=== PATIENT | female | born 1950 | race Caucasian/White ===

== ENCOUNTER 2016-12-16 09:10 | Inpatient (IN) | payer MEDICARE ==
[2016-12-16] VITALS (13 sets, daily range): BP systolic 105–179; BP diastolic 54–91
[~2016-12-16] VITALS: Ht 162.6 cm; Wt 125.8 kg
[~2016-12-16 09:10] MED LIST: AMIO200T2 PO; ASCO250T PO; ASPI-482 PO; ASPI325T4 PO; ATOR20TA58 PO; ATOR40TA59 PO; BUME0.5T PO; BUME1TAB PO; CIPR250T30 PO; CLOP75TA27 PO; CYAN10005 PO; DILT180C29 PO; Diltiazem Hcl PO; FENTANYL PF 100 MCG/2 ML VIAL. IV PRN; FERR325T31 PO; IRBE300T3 PO; ISOS120T2 PO; ISOS60TA2 PO; IV RINGERS,LACTATED 1000ML 1,000 ML IV SCH; KRIL1CAP10 PO; LABE100T3 PO; LABE200T2 PO; LIDOCAINE 1% 1 ML SYRINGE. ID PRN; LOSA100T6 PO; METF500T4 PO; OMEG1CAP38 PO; ONDANSETRON PF 4 MG/2 ML VIAL. IV PRN; PANT40TA3 PO; PROCHLORPERAZINE 10 MG/2 ML VIAL. IV PRN; RANO10002 PO; TRAM50TA PO; WARF5TAB7 PO
[2016-12-16] MEDS ORDERED: LIDOCAINE 2%/EPI 1:100,000 20 ML VIAL. ONE (09:17)
[2016-12-16] MEDS ORDERED: methylPREDNISolone SOD SUCC PF 125 MG/2 ML VIAL. IV ONE (09:45)
[2016-12-16] MEDS ORDERED: FAMOTIDINE 20 MG/2 ML VIAL IVP ONE (09:45)
[2016-12-16] MEDS ORDERED: DIPHENHYDRAMINE 50 MG/ML VIAL IVP ONE (09:45)
[2016-12-16] MEDS ORDERED: LABE100T3 PO (09:50)
[2016-12-16] MEDS ORDERED: BACITRACIN 50,000 UNIT in IV NORMAL SALINE 250ML 250 ML IRR ONE (10:00)
[2016-12-16] MEDS ORDERED: CEFAZOLIN SODIUM 3 GM in IV NORMAL SALINE 100ML 100 ML IV ONE (10:00)
[2016-12-16 10:07] LABS: HEMATOCRIT 37.5 % (36.0-47.0); HEMOGLOBIN 12.1 g/dL (12.0-15.5); RED BLOOD COUNT 4.03 x10^6/uL (3.50-5.40); RED CELL DISTRIBUTION WIDTH 15.5 % (11.5-14.5); WHITE BLOOD COUNT 7.1 x10^3/uL (4.0-11.0)
--- NOTE | 2016-12-16 10:15 | EKG ---
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
[2016-12-16] MEDS ORDERED: LIDOCAINE 2% 100 MG/5 ML DISP.SYRIN. ONE (10:19)
[2016-12-16] MEDS ORDERED: PROPOFOL 50 ML IV ONE (10:19)
[2016-12-16] MEDS ORDERED: MIDAZOLAM HCL 2 MG/2 ML VIAL. ONE (10:19)
[2016-12-16] MEDS ORDERED: OXYTOCIN 10 UNIT/ML VIAL. ONE (10:19)
[2016-12-16] MEDS ORDERED: EPHEDRINE PF IN SALINE 50 MG/5 ML DISP.SYRIN. IV ONE (10:20)
[2016-12-16] MEDS ORDERED: KETAMINE HCL 500 MG/10 ML VIAL. ONE (10:20)
[2016-12-16 10:21] LABS: PROTHROMBIN TIME PATIENT 12.9 SEC (11.7-14.0)
[2016-12-16 10:34] LABS: CALCIUM 9.2 mg/dL (8.5-10.1); CREATININE 1.1 mg/dL (0.6-1.0); GFR 49.4; POTASSIUM 4.2 mmol/L (3.5-5.1)
--- NOTE | 2016-12-16 10:47 | PDOC ---
MODERATE SEDATION ASSESSMENT RISKS/ALTERNATIVES Risks/Alternatives Risks and alternatives of this type of sedation and procedure discussed with: RISK/ALTERNATIVES: Patient H & P ON CHART H & P H & P on chart and reviewed for co-morbid conditions and appropriate labs. H&P ON CHART: Yes STATUS PREG STATUS ASSESSED: N/A MEDS/ALLERGIES REVIEWED Meds/Allergies Reviewed Medications and Allergies including time and route of recently administered narcotics and sedatives. MEDS/ALLERGIES REVIEWED: Yes ASA RATING ASA RATING: II AIRWAY ASSESSMENT Airway Assessment Airway patency, oral function limitations, presence of caps, crowns, dentures, partials, and ability to extend neck assessed. AIRWAY ASSESSMENT: Yes MALLAMPATI SCORE MALLAMPATI SCORE: II PRE-SEDATION ASSESSMENT PRE-SEDATION ASSESSMENT: Yes TRES STEVENS MD Dec 16, 2016 10:47
[2016-12-16] MEDS ORDERED: CEFAZOLIN 2GM PREMIX 0 ML IV ONE (11:35)
[2016-12-16] MEDS ORDERED: IOHEXOL 300 MG/ML 100ML VIAL. ONE (12:03)
[2016-12-16] MEDS ORDERED: LIDOCAINE 2%/EPI 1:100,000 20 ML VIAL. IJ ONE (12:15)
--- NOTE | 2016-12-16 14:36 | CARD ---
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 The patient was brought to the cardiac catheterization lab and the left chest and shoulder were prepp ed and draped in the usual fashion. 30 mL of 2% lidocaine was infiltrated into the skin and subcutaneous tissues for local anesthesia. An incision was made over the previous scar and using blunt dissection and cautery the pocket was opene d, the capsule exposed and opened and the generator removed from the pocket. The right ventricle lead was capped. The right atrial lead was interrogated and found to be functioning well. Venous access w as obtained in the left subclavian vein and a 9 [place] coronary sinus sheath was inserted. With the h elp of contrast injections in the right atrium using a SHABNAM 2 catheter the coronary sinus ostium was engaged and the sheath advanced into the coronary sinus. Venogram was obtained to identify the approp riate posterolateral vein for left ventricular lead placement. Subsequently, a Biotronik bipolar left ventricular lead model Corox serial number [id number] was advanc ed under fluoroscopic guidance and the tip was positioned in the posterolateral vein. Following this, venous access was obtained again and 10 [place] sheath was inserted. A Biotronik bipolar active fixat ion right ventricle lead model Protego serial number [id number] was advanced under fluoroscopic guidanc e and the tip was positioned in the right ventricular apex. The leads were secured into place and att ached to a Biotronik biventricular ICD/FISH FARM LABORER-D generator model Itrevia 7 HF-T DF4 serial number [id number]. This was placed in the pocket was subsequently closed in 3 layers. Hemostasis was secured. Ventricular fibrillation was then induced to check the defibrillation threshold. Patient successfully converted to sinus rhythm with a 14 J shock therapy. The left ventricular lead showed sensing amplit ude of 24.4 mV, impedance of 304 ohms and a threshold of 1.6 V. The right ventricular lead showed a s ensing amplitude of 18.4 mV, impedance of 550 ohms and a threshold of 0.6 V. Patient tolerated the pr ocedure well. There were no immediate complications. 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
[2016-12-16] MEDS ORDERED: ISOS60TA2 PO (17:21)
[2016-12-17 03:00] VITALS: BP 116/47
[2016-12-17 07:13] VITALS: BP 108/69
[2016-12-17 11:13] VITALS: BP 125/60
[2016-12-17] MEDS ORDERED: DILTIAZEM HCL 180 MG CAP.ER.24H PO SCH (12:00)
[2016-12-17] MEDS ORDERED: BUMETANIDE 1 MG TABLET PO SCH (12:00)
[2016-12-17] MEDS ORDERED: ISOSORBIDE MONONITRATE ER 60 MG TAB.ER.24H PO SCH (12:00)
[2016-12-17] MEDS ORDERED: AMIODARONE HCL 200 MG TABLET PO SCH (12:00)
[2016-12-17] MEDS ORDERED: CLOPIDOGREL BISULFATE 75 MG TABLET PO SCH (12:00)
--- NOTE | 2016-12-17 15:18 | PDOC3 ---
Discharge Summary Visit Information Date of Admission: Dec 16, 2016 Date of Discharge: Dec 17, 2016 Admitting Diagnosis: Ischemic cardiomyopathy Final Diagnosis Ischemic cardiomyopathy Chronic systolic heart failure Coronary artery disease Sick sinus syndrome Paroxysmal atrial fibrillation Hypertension Hyperlipidemia Diabetes mellitus Brief Hospital Course Allergies Allergies Coded Allergies Type Severity Reaction Last Updated Verified codeine Allergy Intermediate 12/16/16 Yes ELVIRA Inhibitors Allergy Unknown 12/16/16 Yes Iodine and Iodide Containing Produc Allergy Unknown Swelling 12/16/16 Yes Vital Signs Vital Signs Date Time Temp Pulse Resp B/P Pulse Ox O2 Delivery O2 Flow Rate FiO2 12/17/16 13:07 73 125/60 12/17/16 11:13 98.0 16 96 Nasal Cannula 98.0 12/16/16 20:00 2.0 Lab Results Laboratory Tests Test 12/16/16 09:55 White Blood Count 7.1x10^3/uL (4.0-11.0) Red Blood Count 4.03x10^6/uL (3.50-5.40) Hemoglobin 12.1g/dL (12.0-15.5) Hematocrit 37.5% (36.0-47.0) Mean Corpuscular Volume 93fL (79-100) Mean Corpuscular Hemoglobin 30pg (25-35) Mean Corpuscular Hemoglobin Concent 32g/dL (31-37) Red Cell Distribution Width 15.5% (11.5-14.5) Platelet Count 207x10^3/uL (140-400) Prothrombin Time 12.9SEC (11.7-14.0) Prothromb Time International Ratio 1.0 (0.8-1.1) Activated Partial Thromboplast Time 27SEC (24-38) Sodium Level 143mmol/L (136-145) Potassium Level 4.2mmol/L (3.5-5.1) Chloride Level 104mmol/L (98-107) Carbon Dioxide Level 32mmol/L (21-32) Anion Gap 7 (6-14) Blood Urea Nitrogen 22mg/dL (7-20) Creatinine 1.1mg/dL (0.6-1.0) Estimated GFR (Cockcroft-Gault) 49.4 Glucose Level 104mg/dL (70-99) Calcium Level 9.2mg/dL (8.5-10.1) Brief Hospital Course Ms. 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 She underwent the procedure successfully and remained hemodynamically stable during her hospital stay. Her device was interrogated and found to be functioning well prior to her discharge. Chest x- ray did not show any pneumothorax. She will follow-up with our office in one month. Discharge Information Condition at Discharge: Stable Follow Up: Months (one) Disposition/Orders: D/C to Home Scheduled Amiodarone Hcl (Amiodarone Hcl) 1 TAB PO DAILY Atorvastatin Calcium (Atorvastatin Calcium) 20 MG PO HS (Reported) Bumetanide (Bumetanide) 0.5 MG PO DAILY (Reported) Clopidogrel Bisulfate (Plavix) 75 MG PO DAILY (Reported) Diltiazem Hcl (Diltiazem 24HR Cd) 180 MG PO DAILY (Reported) Irbesartan (Irbesartan) 300 MG PO HS (Reported) Isosorbide Mononitrate (Isosorbide Mononitrate Er) 1 TAB PO DAILY (Reported) Labetalol Hcl (Labetalol Hcl) 200 MG PO BID (Reported) TRES STEVENS MD Dec 17, 2016 15:18
[2016-12-17 15:30] VITALS: BP 138/54
--- NOTE | 2016-12-17 15:48 | RAD ---
Chest, 2 views, 12/17/2016: History: Check ICD placement Comparison is made to a study from 11/09/2016. A left-sided transvenous pacing device is in place with additional transvenous leads having been inserted. 2 leads extend into the region of the right ventricle. The tip of a third lead is projected over the anterior superior aspect of the right atrium. The a fourth lead appears to extend into a cardiac vein posteriorly. The heart is generally enlarged. The pulmonary vascularity is somewhat poorly defined on the PA view. This may be due to technical basis as no infiltrates or abnormal vascularity is evident on the lateral view. There is no evidence of pleural fluid or pneumothorax. IMPRESSION: 1. Transvenous pacing leads are in place as described above. 2. Cardiomegaly.
== END 2016-12-17 17:25 | disposition home or self-care (01) | DRG 227 ==
LOC: CCL 09:10 → 2 NORTH 10:53
PROVIDERS: ADMIT Internal Medicine Cardiovascular Disease; ATTEND Internal Medicine Cardiovascular Disease
PROC: 02HK3KZ Insertion of Defibrillator Lead into Right Ventricle, Percutaneous Approach (ICD-10-PCS; 2016-12-16)
PROC: 02HL3KZ Insertion of Defibrillator Lead into Left Ventricle, Percutaneous Approach (ICD-10-PCS; 2016-12-16)
PROC: 0JPT0PZ Removal of Cardiac Rhythm Related Device from Trunk Subcutaneous Tissue and Fascia, Open Approach (ICD-10-PCS; 2016-12-16)
PROC: 0JH609Z Insertion of Cardiac Resynchronization Defibrillator Pulse Generator into Chest Subcutaneous Tissue and Fascia, Open Approach (ICD-10-PCS; principal; 2016-12-16 11:00)
DX: I25.5 Ischemic cardiomyopathy (principal); I50.22 Chronic systolic (congestive) heart failure; E11.9 Type 2 diabetes mellitus without complications; E78.5 Hyperlipidemia, unspecified; I25.10 Atherosclerotic heart disease of native coronary artery without angina pectoris; I48.0 Paroxysmal atrial fibrillation; I11.0 Hypertensive heart disease with heart failure; I49.5 Sick sinus syndrome; Z88.5 Allergy status to narcotic agent; Z91.041 Radiographic dye allergy status; Z95.0 Presence of cardiac pacemaker; Z88.6 Allergy status to analgesic agent
CPT/HCPCS: 33225; 33249; 36415; 71020; 80048; 85027; 85610; 85730; 93005; 93566; 93641; C1769; C1882; C1892; C1895; J0690; J1200; J2250; J2590; J2704; J2930; J3490; J7050; S0028; J7030

== ENCOUNTER → 2017-05-11 | Outpatient (CLI) | payer MEDICARE ==
[~2017-05-11] MED LIST changes: -ASPI325T4 PO; +ASPI325T8 PO; -CLOP75TA27 PO; +CLOP75TA57 PO; -FENTANYL PF 100 MCG/2 ML VIAL. IV PRN; +FERR-36 PO; -FERR325T31 PO; -IV RINGERS,LACTATED 1000ML 1,000 ML IV SCH; -KRIL1CAP10 PO; +KRIL1CAP11 PO; -LIDOCAINE 1% 1 ML SYRINGE. ID PRN; -ONDANSETRON PF 4 MG/2 ML VIAL. IV PRN; -PROCHLORPERAZINE 10 MG/2 ML VIAL. IV PRN
[2017-05-11 10:23] LABS: ALBUMIN 3.6 g/dL (3.4-5.0); CALCIUM 9.3 mg/dL (8.5-10.1); DIRECT BILIRUBIN 0.2 mg/dL (0.0-0.2); POTASSIUM 4.4 mmol/L (3.5-5.1); TOTAL BILIRUBIN 0.6 mg/dL (0.2-1.0); TOTAL PROTEIN 7.1 g/dL (6.4-8.2)
[2017-05-11 10:35] LABS: FREE T4 1.25 ng/dL (0.76-1.46)
== END | disposition home or self-care (01) ==
LOC: PF 08:34
PROVIDERS: ATTEND Nurse Practitioner
DX: I50.22 Chronic systolic (congestive) heart failure (principal)
CPT/HCPCS: 36415; 80048; 80076; 84439; 84443; 94060; 94729

== ENCOUNTER → 2017-06-18 | Outpatient (CLI) | payer MEDICARE ==
--- NOTE | 2017-06-29 13:13 | RAD ---
APPROVED REPORT Bilateral Lower Extremity Venous Study for DVT Patient Location: OUT-PATIENT Indications Lower Extremity Pain: Bilateral Lower Extremity Edema: Bilateral Shortness of breath Risk Factors Obesity Medications Coumadin Plavix Aspirin DC COUMADIN, STILL ON PLAVIX AND ASPRIN Findings On the right side grayscale images of the common femoral vein, proximal and distal superficial femora l vein and popliteal veins do not reveal any evidence of thrombus and these veins appear to be fully compressible. The mid right superficial femoral vein is not well visualized due to body habitus. Spec tral waveforms and color Doppler are grossly normal. Below-knee veins are not well visualized but the re is demonstration of spontaneous flow. No clear evidence of deep venous thrombosis on the right josue e. On the left side grayscale images of the common femoral vein, proximal and distal superficial femoral vein and popliteal veins do not demonstrate any evidence of thrombus appear to be fully compressible . The mid femoral vein is not well visualized. The below-knee veins do not demonstrate any evidence o f obstruction to flow with spontaneous color Doppler and spectral images noted but grayscale images a re limited due to body habitus. Again no clear evidence of deep venous thrombosis is noted. Critical Notification Critical Value: No <Conclusion> Negative for DVT in the bilateral lower extremities.
--- NOTE | 2017-06-29 13:18 | RAD ---
APPROVED REPORT Patient Location : OUT-PATIENT Indications Lower Extremity Pain : Bilateral Lower Extremity Edema : Bilateral Risk Factors Obesity Past History Compression Stockings : Yes Medications Plavix Aspirin Deep System Deep Venous Thrombosis present : No Deep Venous Reflux present : Yes Lesser Saphenous Veins (LSV) Significant venous reflux is noted in the Left LSV. Accessory Veins Right Anterior Accessory Vein : Present : Yes Leftt Anterior Accessory Vein : Present : Yes Perforators Thigh Perforators Calf Perforators Left: cm up from medial heel 37cm back from the anterior border of tibia 14 diameter 1.6mm. Findings The right great saphenous vein measures approximate 4.5 mm. Although there is reflux noted at the lev el of the common femoral vein there is no clear evidence of reflux noted in the greater saphenous vei n. The right lesser saphenous vein is not well visualized. The left great saphenous vein measures approximately 10 mm. Although there is no clear evidence of re flux the vein is extremely dilated and there are multiple perforators noted on anatomical evaluation. The left lesser saphenous vein does not demonstrate any clear evidence of reflux. Perforators are no adan at the following segments: 37 cm up, 14 cm back-23 cm up and 12 cm back-12 cm up and 11 cm back-a nd 8 cm up and 8 cm back Due to body habitus the imaging was technically difficult. Based on evidence of dilated veins and sig nificant perforators it appears that there is reflux. Reflux is demonstrated at the level of the comm on femoral veins near the saphenofemoral junctions bilaterally with a reflux time of 1.5 seconds. Due to technical limitations clear evidence of reflux was not able to be demonstrated in the greater sap henous veins. Critical Notification Critical Value: No <Conclusion> 1. Reflux noted in the bilateral saphenofemoral junctions without clear evidence of reflux demonstrab le in the greater saphenous veins likely due to technical limitations. 2. Significant dilation of the bilateral greater saphenous veins with multiple perforators noted in t he left side suggestive of chronic reflux disease in the greater saphenous veins.
== END ==
LOC: US 10:40
PROVIDERS: ATTEND Nurse Practitioner
DX: R06.9 Unspecified abnormalities of breathing (principal)
CPT/HCPCS: 93970

== ENCOUNTER 2017-10-09 10:54 | Day surgery (SDC) | payer MEDICARE ==
[~2017-10-09 10:54] MED LIST changes: +ASCO500T PO; +BALANCED SALT IRRIG OPHTH SOLN 15 ML BOTTLE. ONE; +CIPROFLOXACIN 0.3% OPHTH SOLUTION 5ML BOTTLE. OS ONE; +CYAN250012 PO; +IV RINGERS,LACTATED 1000ML 1,000 ML IV SCH; +KRIL1CAP10 PO; -KRIL1CAP11 PO; +KRIL500C PO; +LIDOCAINE 1% PF 2 ML VIAL. ID PRN; +LIDOCAINE 1% PF 2 ML VIAL. ONE; +LIDOCAINE 2% JELLY 6ML IN APPLICATOR. MM PRN; +NEO/POLYMYX/DEXAMETH OPHTH OINTMENT 3.5GM TUBE. ONE; +ONDANSETRON PF 4 MG/2 ML VIAL. IV PRN; +PROCHLORPERAZINE 10 MG/2 ML VIAL. IV PRN; +PROPARACAINE 0.5% OPHTH SOLUTION 15ML BOTTLE. OS ONE; +SACU1TAB7 PO; +TRYPAN BLUE 0.06% INTRAOCULAR 0.5 ML SYRINGE. OS ONE; +fentaNYL PF VIAL 100 MCG/2 ML VIAL IV PRN
[2017-10-09] MEDS: PHENYLEPHRINE 10% OPHTH SOLUTION 5ML BOTTLE. OS SCH ×3 (11:29→11:40)
[2017-10-09] MEDS: CYCLOPENTOLATE 1% OPTH SOLUTION 2ML BOTTLE. OS SCH ×3 (11:29→11:40)
[2017-10-09] MEDS ORDERED: LIDOCAINE 2% JELLY 6ML IN APPLICATOR. ONE (11:53)
[2017-10-09] MEDS ORDERED: CHONDROIT-SOD-HYALURONATE KIT. OS ONE (12:54)
[2017-10-09 13:41] VITALS: BP 147/64
--- NOTE | 2017-10-10 11:03 | OP ---
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 PROCEDURE: Phacoemulsification with posterior chamber lens implant, toric IOL. ANESTHESIA: Topical with MAC. DESCRIPTION OF PROCEDURE: The patient's dilating drops and topical anesthesia were applied in the outpatient department. The patient was then brought to the OR and the left eye was prepped and draped in the usual sterile manner for an intraocular procedure. The operating microscope was brought into position and a lid speculum placed between the eyelids. A paracentesis incision was made inferior-temporally and an injection of 1% epinephrine was performed. This was followed by an injection of Viscoat. The primary 2.4 mm incision was then made temporally. A bent needle and capsulorrhexis forceps were used to perform a circular tear capsulorrhexis about the dilated pupillary border. The lens nucleus was hydrodissected and then phacoemulsified with the phacoemulsification handpiece. The cortex was cleaned up with the I/A handle. Provisc was then injected into the anterior chamber and the capsular bag insufflated. A toric posterior chamber lens implant was then placed into the bag without difficulty and positioned to the right axis. The Provisc was aspirated with the I/A handle and the eye was pressurized and the wound checked for leaks and there were none. The speculum and drape were removed and Maxitrol ointment instilled in the conjunctival sac and the eye was shielded. The patient was taken to recovery room in satisfactory condition. There were no complications. K BETHANY ADRIAN MD DR: DARIUSZ/christel JOB#: [id number] / [id number] CARLIE
[2017-10-13] MEDS ORDERED: ASPI-482 PO (14:56)
== END 2017-10-09 14:19 | disposition home or self-care (01) ==
LOC: SURG 10:54
PROVIDERS: ATTEND Ophthalmology
DX: E11.36 Type 2 diabetes mellitus with diabetic cataract (principal); E78.00 Pure hypercholesterolemia, unspecified; J44.9 Chronic obstructive pulmonary disease, unspecified; E66.9 Obesity, unspecified; F41.9 Anxiety disorder, unspecified; D64.9 Anemia, unspecified; K21.9 Gastro-esophageal reflux disease without esophagitis; Z90.49 Acquired absence of other specified parts of digestive tract; Z86.39 Personal history of other endocrine, nutritional and metabolic disease; Z88.6 Allergy status to analgesic agent; Z88.8 Allergy status to other drugs, medicaments and biological substances; Z91.048 Other nonmedicinal substance allergy status
CPT/HCPCS: 66984; 82962; C1780; J0171; A4461

== ENCOUNTER → 2017-10-16 | Day surgery (SDC) | payer MEDICARE ==
[~2017-10-16] MED LIST changes: +CHONDROIT-SOD-HYALURONATE KIT. OD ONE; +CIPROFLOXACIN 0.3% OPHTH SOLUTION 5ML BOTTLE. OD ONE; -CIPROFLOXACIN 0.3% OPHTH SOLUTION 5ML BOTTLE. OS ONE; -LIDOCAINE 2% JELLY 6ML IN APPLICATOR. MM PRN; +LIDOCAINE 2% JELLY 6ML IN APPLICATOR. ONE; +PROPARACAINE 0.5% OPHTH SOLUTION 15ML BOTTLE. OD ONE; -PROPARACAINE 0.5% OPHTH SOLUTION 15ML BOTTLE. OS ONE; -TRYPAN BLUE 0.06% INTRAOCULAR 0.5 ML SYRINGE. OS ONE
[2017-10-16] MEDS: PHENYLEPHRINE 10% OPHTH SOLUTION 5ML BOTTLE. OD SCH ×3 (11:45→11:57)
[2017-10-16] MEDS: CYCLOPENTOLATE 1% OPTH SOLUTION 2ML BOTTLE. OD SCH ×3 (11:45→11:57)
[2017-10-16] MEDS: LIDOCAINE 2% JELLY 6ML IN APPLICATOR. MM PRN ×2 (12:23→12:29)
[2017-10-16 14:11] VITALS: BP 146/72
--- NOTE | 2017-10-16 14:36 | OP ---
DATE OF SURGERY: 10/16/2017 PREOPERATIVE DIAGNOSIS: Senile cataract, right eye with astigmatism. POSTOPERATIVE DIAGNOSIS: Senile cataract, right eye with astigmatism. PROCEDURE: Phacoemulsification with posterior chamber lens implant, toric implant, right eye. ANESTHESIA: Topical with MAC. DESCRIPTION OF PROCEDURE: The patient's dilating drops and anesthetic drops were placed in the holding room to the right eye. The [place] balloon cuff was used for about 15 minutes. The patient was then brought to the operating room, positioned on the table and the eye was prepped and draped in the usual sterile manner for an intraocular procedure. A lid speculum was placed between the eyelids and the operating microscope brought into position. The eye was first marked for the astigmatic placement of the implant. A paracentesis incision was then made superotemporally and Viscoat injected into the eye. The 2.4 mm primary incision was then made temporally. A 5.5 mm capsulorrhexis was then made about the dilated pupillary border. The lens nucleus was phacoemulsified without difficulty. The cortical cleanup was done with the I/A handle. Provisc was then used to insufflate the bag and the posterior chamber lens placed into the bag without difficulty. The lens was positioned, so the astigmatic markers were at 105 degrees. The Provisc was then aspirated and the eye was pressurized and the wound was checked for leaks. There were no leaks and the eye looked very good at the end of the case. Speculum and drape were removed and Maxitrol ointment instilled in the conjunctival sac and the eye was shielded. The patient was taken to the recovery room in satisfactory condition. There were no complications and I will follow the patient in 3 days in my office. K BETHANY ADRIAN MD DR: DARIUSZ/christel JOB#: [id number] / [id number]
== END ==
LOC: SURG 11:10
PROVIDERS: ATTEND Ophthalmology
DX: H25.9 Unspecified age-related cataract (principal); H52.201 Unspecified astigmatism, right eye; I25.2 Old myocardial infarction; I50.9 Heart failure, unspecified; I25.10 Atherosclerotic heart disease of native coronary artery without angina pectoris; Z95.5 Presence of coronary angioplasty implant and graft; E78.00 Pure hypercholesterolemia, unspecified; J44.9 Chronic obstructive pulmonary disease, unspecified; I48.91 Unspecified atrial fibrillation; E66.9 Obesity, unspecified; K21.9 Gastro-esophageal reflux disease without esophagitis; I11.0 Hypertensive heart disease with heart failure; F41.9 Anxiety disorder, unspecified; E11.9 Type 2 diabetes mellitus without complications; Z85.038 Personal history of other malignant neoplasm of large intestine; Z90.49 Acquired absence of other specified parts of digestive tract; Z98.51 Tubal ligation status; Z98.890 Other specified postprocedural states; Z83.3 Family history of diabetes mellitus; Z82.49 Family history of ischemic heart disease and other diseases of the circulatory system; Z98.42 Cataract extraction status, left eye
CPT/HCPCS: 66984; 82962; C1780; J0171; A4461

== ENCOUNTER 2017-12-30 17:12 | Emergency (ER) | payer MEDICARE ==
[2017-12-30 18:17] LABS: BILIRUBIN,URINE NEGATIVE (NEG); CLARITY,URINE CLEAR; COLOR,URINE YELLOW; GLUCOSE,URINE NEGATIVE (NEG); NITRITE,URINE POSITIVE (NEG); PH,URINE 6.5; PROTEIN,URINE NEGATIVE (NEG-TRACE)
[2017-12-30] MEDS: IV NORMAL SALINE 1000ML BAG 1,000 ML IV ×2 (18:18)
[2017-12-30] MEDS: ONDANSETRON PF 4 MG/2 ML VIAL. IV ×2 (18:21)
[2017-12-30] MEDS: ORPHENADRINE CITRATE 60 MG/2 ML VIAL. IV ×2 (18:22)
[2017-12-30] MEDS: KETOROLAC 15 MG/ML VIAL. IV ×2 (18:23)
[2017-12-30] MEDS: fentaNYL PF VIAL 100 MCG/2 ML VIAL IV ×2 (18:27)
[2017-12-30 18:28] LABS: ANION GAP 11 (6-14); BLOOD UREA NITROGEN 20 mg/dL (7-20); CALCIUM 9.8 mg/dL (8.5-10.1); CARBON DIOXIDE 27 mmol/L (21-32); CHLORIDE 104 mmol/L (98-107); CREATININE 1.2 mg/dL (0.6-1.0); GFR 44.5; GLUCOSE 97 mg/dL (70-99); POTASSIUM 4.3 mmol/L (3.5-5.1); SODIUM 142 mmol/L (136-145)
[2017-12-30 18:32] LABS: BACTERIA,URINE MANY /HPF (0-FEW); RBC,URINE 0 /HPF (0-2); SQUAMOUS EPITHELIAL CELL,UR FEW /LPF
== END 2017-12-30 20:40 | disposition home or self-care (01) ==
LOC: ER 17:12
DX: M54.5 Low back pain (principal); N39.0 Urinary tract infection, site not specified; I11.0 Hypertensive heart disease with heart failure; I50.9 Heart failure, unspecified; E11.9 Type 2 diabetes mellitus without complications; I25.2 Old myocardial infarction; E66.9 Obesity, unspecified; I48.91 Unspecified atrial fibrillation; Z90.49 Acquired absence of other specified parts of digestive tract; Z95.810 Presence of automatic (implantable) cardiac defibrillator; Z98.51 Tubal ligation status; Z95.5 Presence of coronary angioplasty implant and graft; Z88.5 Allergy status to narcotic agent; Z88.8 Allergy status to other drugs, medicaments and biological substances; Z91.048 Other nonmedicinal substance allergy status
CPT/HCPCS: 36415; 74176; 80048; 81001; 87086; 87186; 96361; 96365; 96375; 99285-25; J0690; J1885; J2360; J2405; J3010; J7030

== ENCOUNTER 2018-01-03 00:34 | Emergency (ER) | payer MEDICARE ==
[2018-01-03] MEDS: ORPHENADRINE CITRATE 60 MG/2 ML VIAL. IM ×2 (01:41)
[2018-01-03] MEDS: KETOROLAC 15 MG/ML VIAL. IM ×2 (01:41)
== END 2018-01-03 02:50 | disposition home or self-care (01) ==
LOC: ER 00:34
DX: M54.5 Low back pain (principal); M79.604 Pain in right leg; E11.9 Type 2 diabetes mellitus without complications; I11.0 Hypertensive heart disease with heart failure; I50.9 Heart failure, unspecified; I48.91 Unspecified atrial fibrillation; Z95.5 Presence of coronary angioplasty implant and graft; I25.2 Old myocardial infarction; Z98.51 Tubal ligation status; Z90.49 Acquired absence of other specified parts of digestive tract; Z88.5 Allergy status to narcotic agent; Z88.8 Allergy status to other drugs, medicaments and biological substances; Z91.041 Radiographic dye allergy status
CPT/HCPCS: 96372; 99284-25; J1885; J2360

== ENCOUNTER → 2018-01-29 | Outpatient (CLI) | payer MEDICARE ==
[2018-01-29 15:09] LABS: ANION GAP 10 (6-14); BLOOD UREA NITROGEN 30 mg/dL (7-20); CALCIUM 9.4 mg/dL (8.5-10.1); CARBON DIOXIDE 28 mmol/L (21-32); CHLORIDE 106 mmol/L (98-107); CREATININE 1.3 mg/dL (0.6-1.0); GFR 40.6; GLUCOSE 118 mg/dL (70-99); SODIUM 144 mmol/L (136-145)
== END | disposition home or self-care (01) ==
LOC: ECHO 13:32
DX: I25.5 Ischemic cardiomyopathy (principal); I51.9 Heart disease, unspecified
CPT/HCPCS: 36415; 80048; 93306

== ENCOUNTER → 2018-03-03 | Outpatient (CLI) | payer MEDICARE | END | disposition home or self-care (01) | LOC: PNCL 12:29 | DX: M48.061 Spinal stenosis, lumbar region without neurogenic claudication (principal); M54.16 Radiculopathy, lumbar region; E11.9 Type 2 diabetes mellitus without complications; I25.10 Atherosclerotic heart disease of native coronary artery without angina pectoris; G47.39 Other sleep apnea; E66.8 Other obesity | CPT/HCPCS: G0463 ==

== ENCOUNTER → 2018-03-18 | Outpatient (CLI) | payer MEDICARE ==
[~2018-03-18] MED LIST changes: -AMIO200T2 PO; -ASCO250T PO; -ASCO500T PO; -ASPI-482 PO; -ASPI325T8 PO; -ATOR20TA58 PO; -ATOR40TA59 PO; -BALANCED SALT IRRIG OPHTH SOLN 15 ML BOTTLE. ONE; -BUME0.5T PO; -BUME1TAB PO; -CHONDROIT-SOD-HYALURONATE KIT. OD ONE; -CIPR250T30 PO; -CIPROFLOXACIN 0.3% OPHTH SOLUTION 5ML BOTTLE. OD ONE; -CLOP75TA57 PO; -CYAN10005 PO; -CYAN250012 PO; -DILT180C29 PO; -Diltiazem Hcl PO; -FERR-36 PO; +IOHEXOL 180 MG/ML 10 ML VIAL.; -IRBE300T3 PO; -ISOS120T2 PO; -ISOS60TA2 PO; -IV RINGERS,LACTATED 1000ML 1,000 ML IV SCH; -KRIL1CAP10 PO; -KRIL500C PO; -LABE100T3 PO; -LABE200T2 PO; -LIDOCAINE 1% PF 2 ML VIAL. ID PRN; -LIDOCAINE 1% PF 2 ML VIAL. ONE; -LIDOCAINE 2% JELLY 6ML IN APPLICATOR. ONE; -LOSA100T6 PO; -METF500T4 PO; -NEO/POLYMYX/DEXAMETH OPHTH OINTMENT 3.5GM TUBE. ONE; -OMEG1CAP38 PO; -ONDANSETRON PF 4 MG/2 ML VIAL. IV PRN; -PANT40TA3 PO; -PROCHLORPERAZINE 10 MG/2 ML VIAL. IV PRN; -PROPARACAINE 0.5% OPHTH SOLUTION 15ML BOTTLE. OD ONE; -RANO10002 PO; -SACU1TAB7 PO; -TRAM50TA PO; -WARF5TAB7 PO; -fentaNYL PF VIAL 100 MCG/2 ML VIAL IV PRN; +methylPREDNISolone ACETATE 40 MG/ML VIAL.; +methylPREDNISolone ACETATE 80 MG/ML VIAL.
== END ==
LOC: PNCL 10:52
DX: M51.16 Intervertebral disc disorders with radiculopathy, lumbar region (principal); M48.061 Spinal stenosis, lumbar region without neurogenic claudication
CPT/HCPCS: 62323; J1030; J1040; Q9965

== ENCOUNTER → 2018-04-01 | Outpatient (CLI) | payer MEDICARE | END | disposition home or self-care (01) | LOC: PNCL 10:05 | DX: M51.16 Intervertebral disc disorders with radiculopathy, lumbar region (principal); M48.061 Spinal stenosis, lumbar region without neurogenic claudication; I11.0 Hypertensive heart disease with heart failure; I50.9 Heart failure, unspecified; E78.00 Pure hypercholesterolemia, unspecified; I48.91 Unspecified atrial fibrillation; J44.9 Chronic obstructive pulmonary disease, unspecified; K21.9 Gastro-esophageal reflux disease without esophagitis; E11.9 Type 2 diabetes mellitus without complications; F41.9 Anxiety disorder, unspecified; D64.9 Anemia, unspecified; I25.119 Atherosclerotic heart disease of native coronary artery with unspecified angina pectoris; E66.9 Obesity, unspecified; G47.30 Sleep apnea, unspecified; M19.90 Unspecified osteoarthritis, unspecified site; Z95.5 Presence of coronary angioplasty implant and graft; Z95.810 Presence of automatic (implantable) cardiac defibrillator; Z79.01 Long term (current) use of anticoagulants; Z98.42 Cataract extraction status, left eye; Z85.038 Personal history of other malignant neoplasm of large intestine; Z90.49 Acquired absence of other specified parts of digestive tract; Z98.51 Tubal ligation status; Z98.890 Other specified postprocedural states; Z82.49 Family history of ischemic heart disease and other diseases of the circulatory system; Z83.3 Family history of diabetes mellitus; Z83.79 Family history of other diseases of the digestive system | CPT/HCPCS: 62323; J1030; J1040; Q9965 ==

== ENCOUNTER → 2018-04-29 | Outpatient (CLI) | payer MEDICARE | END | disposition home or self-care (01) | LOC: PNCL 10:08 | DX: M51.16 Intervertebral disc disorders with radiculopathy, lumbar region (principal); M47.896 Other spondylosis, lumbar region | CPT/HCPCS: G0463 ==

== ENCOUNTER → 2019-05-04 | Outpatient (CLI) | payer MEDICARE ==
[2018-01-03 00:45] VITALS: BP 176/78
[~2019-05-04] MED LIST changes: +AMIO200T4 PO; +ASCO250T PO; +ASCO500T PO; +ASPI-482 PO; +ASPI325T8 PO; +ATOR20TA58 PO; +ATOR40TA59 PO; +BUME0.5T2 PO; +BUME1TAB3 PO; +CEPH-264 PO; +CIPR250T30 PO; +CLOP75TA57 PO; +CYAN10005 PO; +CYAN250012 PO; +CYCL10TA2 PO; +DILT180C29 PO; +Diltiazem Hcl PO; +FERR-36 PO; +GABA-585 PO; +HYDR-3164 PO; -IOHEXOL 180 MG/ML 10 ML VIAL.; +IRBE300T3 PO; +ISOS120T4 PO; +ISOS60TA2 PO; +KRIL1CAP10 PO; +KRIL500C PO; +LABE100T5 PO; +LABE200T4 PO; +LOSA100T14 PO; +METF500T16 PO; +METH35.4 TP; +OMEG1CAP38 PO; +PANT40TA3 PO; +RANO10002 PO; +SACU1TAB7 PO; +TRAM50TA PO; +WARF-31 PO; -methylPREDNISolone ACETATE 40 MG/ML VIAL.; -methylPREDNISolone ACETATE 80 MG/ML VIAL.
--- NOTE | 2019-05-05 11:18 | RAD ---
MR#: [id number] Date of Study: 05/05/2019 Ordering Physician: TRES STEVENS, Referring Physician: MARTINE GOTTLIEB Tech: RT Hal (R) (N) APPROVED REPORT Test Type: Pharmacological Stress Nurse/Tech: Chantell Sullivan R.N. Test Indications: CAD Cardiac History: Hypertension, PM, defib, IL stent x2 Medications: See Electronic Medical Record Medical History: See Electronic Medical Record Resting EC% paced Resting Heart Rate: 72 bpm Resting Blood Pressure: 156/69mmHg Pretest Chest Pain: No chest pain Nurse/Tech Notes S1S2, lungs sound clear Consent: The procedure was explained to the patient in lay terms. Informed consent was witnessed. Kwame eout was entered into [facility]. History and Stress Test performed by Chantell Sullivan R.N. Pharm. Details Pharmacologic stress testing was performed using 0.4mg per 5ml of regadenoson given intravenously ove r 7-10 seconds. Stress Symptoms No chest pain or symptoms. POST EXERCISE Reason for Termination: Infusion complete Target HR: 127 Max HR: 78 bpm Max Blood Pressure: 139/61mmHg Blood Pressure response to exercise: Normal blood pressure response during stress. Chest Pain: No. Arrhythmia: No. ST Change: No. INTERPRETATION Stress EKG Conclusion: Non-diagnostic EKG due to pacing. Imaging Protocol IMAGE PROTOCOL: Rest Tc-99m/stress Tc-99m 2 days Rest: Stress: Viability: Radiopharm.Tc99m CbjtphifnRm48r Sestamibi Gmqf03iMd 32.5mCi Duration 15min. 15min. Img Date 05/04/2019 05/05/2019 Inj-Img Oixo37lqq. 60min. Rest Admin Site:IV - Left AntecubitalAdministrator:RT Hal (R)(N) Stress Admin Site: IV - Right ForearmAdministrator: PEDRITO Layton STRESS DATA End Diast. Vol.213.0mlLVEDV index BSA94.0ml End Syst. Vol.127.0mlLVESV index BSA56.0ml Myocardial Khhh977.0gEject. Jojfbowb55.0% Stress Scores Regional WT2.00Summed WT29.00 Regional WM0.00Summed WM20.00 LV Perfusion There is a large sized, severe in intensity mid to distal anteroseptal, anterior and apical perfusion defect with mild to moderate kostas-infarct ischemia without significant viability in the apical segme nts. There is a large sized, severe in intensity basal to distal inferior and basal inferolateral perfusio n defect that is mostly FIXED with minimal kostas-infarct reversibility. Wall Motion Moderate LV dysfunction with an EF of 40%. LV Perf. Quant 17 Seg. SSS27.00 17 Seg. SRS19.00 17 Seg. SDS8.00 Stress Defect Extent (% LAD)59.40Rest Defect Extent (% LAD)46.90Rev. Defect Extent (% LAD)44.40 Stress Defect Extent (% LCX) 21.30Rest Defect Extent (% LCX)3.80Rev. Defect Extent (% LCX)18.80 Stress Defect Extent (% RCA)72.20Rest Defect Extent (% RCA)71.10Rev. Defect Extent (% RCA)11.10 Stress Defect Extent (% [place])57.00Rest Defect Extent (% [place])42.80Rev. Defect Extent (% [place])36.10 Other Information Quality:Good Risk Assessment: High Risk Conclusion 1. Non-diagnostic EKG due to pacing artifact. 2. Large anterior/inferior/apical mostly FIXED perfusion defects consistent with large prior LAD/RCA territory infarcts with mild to moderate kostas-infarct ischemia. 3. Moderate LV dysfunction. EF 40% 4. High risk for future CV events. Signed by : Ashwin Rapp, Electronically Approved : 05/05/2019 11:18:33
== END | disposition home or self-care (01) ==
LOC: NM 08:48
PROVIDERS: ATTEND Internal Medicine Cardiovascular Disease
DX: I21.09 ST elevation (STEMI) myocardial infarction involving other coronary artery of anterior wall (principal); I11.0 Hypertensive heart disease with heart failure; I50.22 Chronic systolic (congestive) heart failure; I25.2 Old myocardial infarction; I25.10 Atherosclerotic heart disease of native coronary artery without angina pectoris; Z95.818 Presence of other cardiac implants and grafts; Z95.810 Presence of automatic (implantable) cardiac defibrillator
CPT/HCPCS: 78452; A9500

== ENCOUNTER → 2019-05-05 | Outpatient (CLI) | payer MEDICARE ==
[2018-01-03 00:45] VITALS: BP 176/78
[~2019-05-05] MED LIST changes: -PANT40TA3 PO; +PANT40TA77 PO; +REGADENOSON 0.4 MG/5 ML DISP.SYRIN. IV ONE
--- NOTE | 2019-05-05 12:44 | CARD ---
MR#: [id number] Date of Study: 05/05/2019 Ordering Physician: TRES STEVENS, Referring Physician: TRES STEVENS, Tech: Sandee Curran APPROVED REPORT EXAM: Two-dimensional and M-mode echocardiogram with Doppler and color Doppler. Other Information Quality : AverageHR: 80bpm Technically limited study due to body habitus. INDICATION CAD Congestive Heart Failure RISK FACTORS Hypertension Hyperlipidemia Diabetes 2D DIMENSIONS RVDd3.1 (2.9-3.5cm)Left Atrium(2D)4.0 (1.6-4.0cm) IVSd1.1 (0.7-1.1cm)Aortic Root(2D)3.0 (2.0-3.7cm) LVDd6.7 (3.9-5.9cm)LVOT Diameter2.0 (1.8-2.4cm) PWd1.2 (0.7-1.1cm)LVDs3.8 (2.5-4.0cm) FS (%) 43.3 %SV170.4 ml LVEF(%)73.3 (>50%) Aortic Valve AoV Peak Ash.165.0cm/sAoV VTI37.9cm AO Peak GR.10.9mmHgLVOT Peak Ash.101.7cm/s LVOT VTI 22.46cmAO Mean GR.6mmHg JOSE ANGEL (VMAX)1.81bg0MPH (VTI)1.92cm2 Mitral Valve MV E Splhxqdf28.4cm/sMV DECEL JUNS898zb MV A Nkmzjviq302.4cm/sMV IET62fq E/A Ratio0.8MVA (PHT)4.43cm2 TDI E/Lateral E'17.7E/Medial E'16.9 Pulmonary Valve PV Peak Wczsafil938.3cm/sPV Peak Grad.5mmHg Tricuspid Valve TR P. Cmhdafja178eb/sRAP KQWXGMLP1fpJf TR Peak Gr.16kyZgWJPM07jpVp Pulmonary Vein S1 Coctnydr37.6cm/sD2 Yvoogdid38.3cm/s PVa [id number] LEFT VENTRICLE The Left Ventricle is moderately to severely dilated. There is borderline concentric left ventricular hypertrophy. The systolic function is mildly impaired. The Ejection Fraction is 45-50%. The distal s eptum and apex are severely hypokinetic. Basal to mid inferior wall is moderately hypokinetic. Transm itral Doppler flow pattern is Grade I-abnormal relaxation pattern. RIGHT VENTRICLE The right ventricle is normal size. There is normal right ventricular wall thickness. The right ventr icular systolic function is normal. There is a pacemaker lead in the right ventricle. ATRIA The left atrium size is normal. The right atrium is borderline dilated. There is a pacemaker lead see n in the right atrium. The interatrial septum is intact with no evidence for an atrial septal defect or patent foramen ovale as noted on 2-D or Doppler imaging. AORTIC VALVE Not well visualized. Moderately calcified. Doppler and Color Flow revealed no significant aortic regu rgitation. There is no significant aortic valvular stenosis. MITRAL VALVE The mitral valve is mildly thickened. There is no evidence of mitral valve prolapse. There is no mitr al valve stenosis. Doppler and Color-flow revealed trace mitral regurgitation. TRICUSPID VALVE The tricuspid valve is normal in structure and function. Doppler and Color Flow revealed trace tricus pid regurgitation with an estimated PAP of 45 mmHg. There is no tricuspid valve stenosis. PULMONIC VALVE Doppler and Color Flow revealed no pulmonic valvular regurgitation. There is no pulmonic valvular kylie nosis. GREAT VESSELS The aortic root is normal in size. The IVC is normal in size and collapses >50% with inspiration. PERICARDIAL EFFUSION There is no evidence of significant pericardial effusion. Critical Notification Critical Value: No <Conclusion> The systolic function is mildly impaired. The Ejection Fraction is 45-50%. The distal septum and apex are severely hypokinetic. Basal to mid inferior wall is moderately hypokin etic. There is a pacemaker lead in the right ventricle. Signed by : Ashwin Rapp, Electronically Approved : 05/05/2019 12:44:31
== END | disposition home or self-care (01) ==
LOC: NM 11:00
PROVIDERS: ATTEND Internal Medicine Cardiovascular Disease
DX: I35.8 Other nonrheumatic aortic valve disorders (principal); I50.22 Chronic systolic (congestive) heart failure; I25.10 Atherosclerotic heart disease of native coronary artery without angina pectoris
CPT/HCPCS: 93017; 93306; 96376; J2785

== ENCOUNTER → 2020-07-05 | Outpatient (CLI) | payer MEDICARE ==
[2018-01-03 00:45] VITALS: BP 176/78
[~2020-07-05] MED LIST changes: -ASCO250T PO; +ASCO250T11 PO; -ASCO500T PO; +ASCO500T53 PO; +CYAN-25 PO; -CYAN10005 PO; +IRBE300T23 PO; -IRBE300T3 PO; -REGADENOSON 0.4 MG/5 ML DISP.SYRIN. IV ONE
--- NOTE | 2020-07-06 10:33 | CARD ---
MR#: [id number] Date of Study: 07/05/2020 Ordering Physician: TRES STEVENS, Referring Physician: TRES STEVENS, Tech: Sandee Cliftongiovanna APPROVED REPORT EXAM: Two-dimensional and M-mode echocardiogram with Doppler and color Doppler. Other Information Quality : AverageHR: 76bpm INDICATION Congestive Heart Failure Surgery/Intervention Pacemaker: Date: 2013 ICD/Pacemaker: Date: 2016 RISK FACTORS Hypertension Hyperlipidemia Diabetes 2D DIMENSIONS RVDd3.6 (2.9-3.5cm)Left Atrium(2D)3.7 (1.6-4.0cm) IVSd1.1 (0.7-1.1cm)Aortic Root(2D)3.0 (2.0-3.7cm) LVDd6.8 (3.9-5.9cm)LVOT Diameter2.3 (1.8-2.4cm) PWd1.1 (0.7-1.1cm)LVDs4.7 (2.5-4.0cm) FS (%) 30.4 %SV135.1 ml LVEF(%)56.6 (>50%) Aortic Valve AoV Peak Ash.174.7cm/sAoV VTI37.7cm AO Peak GR.12.2mmHgLVOT Peak Ash.100.7cm/s LVOT VTI 23.75cmAO Mean GR.7mmHg JOSE ANGEL (VMAX)1.79ww7FOM (VTI)2.53cm2 Mitral Valve MV E Gjpdzoxv31.1cm/sMV DECEL XPOJ184th MV A Gxrvrehf682.0cm/sMV E Mean Gr.3mmHg MV ULL10mrB/A Ratio0.8 MVA (PHT)4.14cm2 TDI E/Lateral E'15.4E/Medial E'15.4 Pulmonary Valve PV Peak Iwdlqvip73.1cm/sPV Peak Grad.3mmHg Tricuspid Valve TR P. Ocinfvql215bg/sRAP TKJBTYCV7lbZc TR Peak Gr.42pgFjAPXU79efVj Pulmonary Vein S1 Ttapjeof79.4cm/sD2 Hnbpcbps61.0cm/s PVa rwzvjjbe806lrlu LEFT VENTRICLE The Left Ventricle is mildly dilated. There is normal left ventricular wall thickness. The left ventr icular systolic function is mildly impaired. The Ejection Fraction is 45-50%. Hypokinesis of distal a nteroseptal and apical watts. Hypokinesis of base to mid inferior and posterior watts. Transmitral Do ppler flow pattern is Grade I-abnormal relaxation pattern. RIGHT VENTRICLE The right ventricle is mildly dilated. There is normal right ventricular wall thickness. The right ve ntricular systolic function is normal. ATRIA The left atrium size is normal. The right atrium size is normal. The interatrial septum is intact wit h no evidence for an atrial septal defect or patent foramen ovale as noted on 2-D or Doppler imaging. AORTIC VALVE The aortic valve is calcified but opens well. Doppler and Color Flow revealed no significant aortic r egurgitation. Calculated aortic valve area is 2.17 cm2 with maximum pressure gradient of 15 mmHg and mean pressure gradient of 9 mmHg. There is no significant aortic valvular stenosis. MITRAL VALVE The mitral valve is thickened but opens well. There is no evidence of mitral valve prolapse. There is no mitral valve stenosis and a mean gradient of 2.6 mmHg. Doppler and Color-flow revealed trace mitr al regurgitation. TRICUSPID VALVE The tricuspid valve is normal in structure and function. Doppler and Color Flow revealed trace tricus pid regurgitation with an estimated PAP of 42 mmHg. There is no tricuspid valve stenosis. PULMONIC VALVE The pulmonic valve is not well visualized. Doppler and Color Flow revealed no pulmonic valvular regur gitation. GREAT VESSELS The aortic root is normal in size. The IVC is normal in size and collapses >50% with inspiration. PERICARDIAL EFFUSION There is no evidence of significant pericardial effusion. Critical Notification Critical Value: No <Conclusion> Hypokinesis of distal anteroseptal and apical watts. Hypokinesis of base to mid inferior and posterior watts. The Ejection Fraction is 45-50%. Transmitral Doppler flow pattern is Grade I-abnormal relaxation pattern. Trace mitral regurgitation. Trace tricuspid regurgitation with an estimated PAP of 42 mmHg. There is no evidence of significant pericardial effusion. Signed by : Tres Stevens, Electronically Approved : 07/06/2020 10:32:42
== END | disposition home or self-care (01) ==
LOC: ECHO 13:49
PROVIDERS: ATTEND Internal Medicine Cardiovascular Disease
DX: I35.1 Nonrheumatic aortic (valve) insufficiency (principal); I50.22 Chronic systolic (congestive) heart failure
CPT/HCPCS: 93306

== ENCOUNTER 2020-11-25 16:19 | Inpatient (IN) | payer MEDICARE ==
[~2020-11-25] VITALS: Ht 162.6 cm; Wt 120.6 kg
[~2020-11-25 16:19] MED LIST changes: -AMIO200T4 PO; +AMIO200T6 PO
--- NOTE | 2020-11-25 17:25 | ED.ADGEN ---
Past Medical History Past Medical History: A-Fib, CHF, Diabetes-Type II, Hypertension, ID, Other Additional Past Medical Histor: OBESE,RESPIRATORY FAILURE Past Surgical History: Cholecystectomy, Tubal ligation, Other Additional Past Surgical Histo: CARDIAC STENTS Smoking Status: Never Smoker Alcohol Use: None Drug Use: None General Adult EDM: Chief Complaint: MECHANICAL FALL HPI: HPI: Patient is a 70-year-old female with past medical history of generalized weakness and morbid obesity who presents to the emergency room after having a fall at home. Patient is on Plavix due to a prior heart attack. She is not on any other blood thinners. She bent down to try to get something from under her chair when she fell forward hitting the top of her head on her refrigerator. She did not lose consciousness she does have a minor headache. She is complai [place] of bilateral knee pain. She states that she fell onto her knees. She is also having right hip pain. She is supposed to use a walker but was not using walker today. She lives alone. Review of Systems: Review of Systems: Complete ROS is negative unless otherwise documented in HPI Current Medications: Current Medications Medications (Trade) Dose Ordered Sig/Adrianna Start Time Stop Time Status Last Admin Dose Admin Acetaminophen (Tylenol) 650 mg PRN Q6HRS PRN 11/25/20 19:15 Acetaminophen/ Hydrocodone Bitart (Lortab 5/325) 2 tab PRN Q4HRS PRN 11/25/20 19:15 11/26/20 11:17 2 TAB Al Hydroxide/Mg Hydroxide (Mylanta Plus Xs) 30 ml PRN Q3HRS PRN 11/25/20 19:15 Bisacodyl (Dulcolax Supp) 10 mg PRN DAILY PRN 11/25/20 19:15 Calcium Carbonate/ Glycine (Tums) 500 mg PRN Q3HRS PRN 11/25/20 19:15 Dextrose (Dextrose 50%-Water Syringe) 12.5 gm PRN Q15MIN PRN 11/25/20 19:45 Labetalol HCl (Normodyne Iv Push) 10 mg PRN Q30MIN PRN 11/25/20 19:45 Magnesium Hydroxide (Milk Of Magnesia) 2,400 mg PRN Q12HR PRN 11/25/20 19:15 Morphine Sulfate (Morphine Sulfate) 2 mg PRN Q2HR PRN 11/25/20 18:30 11/26/20 18:29 DC 11/25/20 22:59 2 MG Ondansetron HCl (Zofran) 4 mg PRN Q6HRS PRN 11/25/20 19:15 Oxycodone/ Acetaminophen (Percocet 5/325) 2 tab 1X ONCE 11/25/20 17:45 11/25/20 17:46 DC 11/25/20 17:47 2 TAB Prochlorperazine Edisylate (Compazine) 10 mg PRN Q6HRS PRN 11/25/20 19:15 Zolpidem Tartrate (Ambien) 5 mg PRN QHS PRN 11/25/20 19:15 Allergies: Allergies: Allergies Coded Allergies Type Severity Reaction Last Updated Verified ELVIRA Inhibitors Allergy Intermediate 10/16/17 Yes adhesive tape Allergy Intermediate 10/16/17 Yes codeine Allergy Intermediate 11/25/20 Yes Physical Exam: PE: General: Awake, alert, NAD. Well Nourished, well hydrated. Cooperative HEENT: Atraumatic, EOMI, PERRL, airway patent, moist oral mucosa, no nasal septal hematoma, no facial crepitus or deformity Neck: Supple, trachea midline, no C-spine tenderness Respiratory: CTA bilaterally, normal effort, no wheezing/crackles, no crepitus CV: RRR, no murmur, cap refill <2, 2+ bilateral radial/DP pulses GI: Soft, nondistended, nontender, no masses MSK: No obvious deformities, bilateral knee tenderness, pelvis stable and right hip tenderness Skin: Warm, dry, small abrasion to hand Neuro: A&O x3, speech NL, sensory and motor grossly intact, no focal deficits Psych: Normal affect, normal mood, not suicidal or homicidal Current Patient Data: Labs: Laboratory Tests Test 11/25/20 19:00 White Blood Count 9.2 x10^3/uL (4.0-11.0) Red Blood Count 3.99 x10^6/uL (3.50-5.40) Hemoglobin 13.1 g/dL (12.0-15.5) Hematocrit 38.9 % (36.0-47.0) Mean Corpuscular Volume 97 fL (79-100) Mean Corpuscular Hemoglobin 33 pg (25-35) Mean Corpuscular Hemoglobin Concent 34 g/dL (31-37) Red Cell Distribution Width 14.8 % (11.5-14.5) H Platelet Count 231 x10^3/uL (140-400) Neutrophils (%) (Auto) 76 % (31-73) H Lymphocytes (%) (Auto) 14 % (24-48) L Monocytes (%) (Auto) 7 % (0-9) Eosinophils (%) (Auto) 2 % (0-3) Basophils (%) (Auto) 1 % (0-3) Neutrophils # (Auto) 7.0 x10^3/uL (1.8-7.7) Lymphocytes # (Auto) 1.3 x10^3/uL (1.0-4.8) Monocytes # (Auto) 0.7 x10^3/uL (0.0-1.1) Eosinophils # (Auto) 0.2 x10^3/uL (0.0-0.7) Basophils # (Auto) 0.0 x10^3/uL (0.0-0.2) Sodium Level 140 mmol/L (136-145) Potassium Level 4.5 mmol/L (3.5-5.1) Chloride Level 105 mmol/L (98-107) Carbon Dioxide Level 25 mmol/L (21-32) Anion Gap 10 (6-14) Blood Urea Nitrogen 16 mg/dL (7-20) Creatinine 1.0 mg/dL (0.6-1.0) Estimated GFR (Cockcroft-Gault) 54.5 Glucose Level 113 mg/dL (70-99) H Calcium Level 9.9 mg/dL (8.5-10.1) Laboratory Tests 11/25/20 19:00 Laboratory Tests 11/25/20 19:00 Vital Signs: Vital Signs Date Time Temp Pulse Resp B/P (MAP) Pulse Ox O2 Delivery O2 Flow Rate FiO2 11/25/20 16:19 98.5 76 18 172/81 (111) 95 Room Air 98.5 EKG: EKG: EKG interpreted by me paced rhythm with a widened QRS, rate of 68, nonspecific ST changes, QTC of 501 [] Heart Score: Risk Factors: Risk Factors: DM, Current or recent (<one month) smoker, HTN, HLP, family history of CAD, obesity. Risk Scores: Score 0 - 3: 2.5% MACE over next 6 weeks - Discharge Home Score 4 - 6: 20.3% MACE over next 6 weeks - Admit for Clinical Observation Score 7 - 10: 72.7% MACE over next 6 weeks - Early Invasive Strategies Radiology/Procedures: Radiology/Procedures: [][facility] [address] [place] [address] IMAGING REPORT Signed PATIENT: ANA SIMON ACCOUNT: [id number] : 1950 LOCATION: ER AGE: 70 SEX: F EXAM STATUS: REG ER ORD. PHYSICIAN: KENDRA AKHTAR MD REASON: fall, pain PROCEDURE: HIP RIGHT 2V WITH PELVIS Exam performed: X-ray bilateral knees and right hip HISTORY: Fall, pain. DATE OF SERVICE: 11/25/2020. COMPARISON: None available FINDINGS: AP lateral and oblique views of bilateral knees are obtained. There is mild narrowing of the medial left tibiofemoral joint. Moderate narrowing of the patellofemoral joint is seen with osteophytic spurring. There is also krjx-md-httyozka narrowing of the right medial tibiofemoral and patellofemoral joint. Diffuse osteophytic spurring is seen. There is no acute fracture or dislocation. Diffuse soft tissue swelling is noted. Single AP view pelvis and AP and frog-leg lateral view of the right hip is obtained. Normal alignment of hip and bilaterally joint is preserved. There is no acute fracture or dislocation. Mild foreshortening of the right hip joint may be positional. Nonspecific bowel gas pattern seen. IMPRESSION: Moderate degenerative arthrosis involving bilateral knees. No acute findings seen. Diffuse soft tissue swelling is present. Foreshortening of the right femoral neck is perhaps positional. If there is a clinical suspicion for fracture, evaluation with CT scan of the right hip may be obtained to rule out occult fracture. Electronically signed by: Travis Cottrell MD (11/25/2020 5:59 PM) [facility] DICTATED and SIGNED BY: TRAVIS COTTRELL MD DATE: 11/25/20 [id number] 0 [facility] [address] [place] [address] IMAGING REPORT Signed PATIENT: ANA SIMON ACCOUNT: [id number] : 1950 LOCATION: ER AGE: 70 SEX: F EXAM STATUS: REG ER ORD. PHYSICIAN: KENDRA AKHTAR MD REASON: fall pain PROCEDURE: CT HEAD WO CONTRAST CT head without contrast: Reason for examination: Fell with headache. Axial images were obtained through the brain. No contrast was administered. Exposure: One or more of the following individualized dose reduction techniques were utilized for this examination: 1. Automated exposure control 2. Adjustment of the mA and/or kV according to patient size 3. Use of iterative reconstruction technique. Ventricular systems are prominent but symmetric consistent with some central atrophy which is unchanged. There is no midline shift. There are some patchy deep white matter changes in the frontal and parietal lobes consistent with microvascular ischemic changes. There is no evidence of intracranial hemorrhage, infarct, mass or edema. No abnormalities of seen at the orbits. The paranasal sinuses are clear. Mastoid air cells are clear. No acute abnormality seen in the skull. IMPRESSION: Prominent ventricles probably reflecting some central atrophy with some microvascular ischemic changes. These findings are stable. No acute intracranial abnormality evident. Electronically signed by: Quan Guevara MD (11/25/2020 5:34 PM) [id number] DICTATED and SIGNED BY: QUAN GUEVARA MD DATE: 11/25/20 [id number] 0 [facility] [address] [place] [address] IMAGING REPORT Signed PATIENT: ANA SIMON ACCOUNT: [id number] : 1950 LOCATION: ER AGE: 70 SEX: F EXAM STATUS: REG ER ORD. PHYSICIAN: CJ CHTATERJEE MD REASON: fall. r/o right hip fx PROCEDURE: CT PELVIS WO CONTRAST Exam: CT pelvis without contrast INDICATION: Fall, rule out right hip fracture TECHNIQUE: Sequential axial images through the pelvis obtained without IV contrast. Sagittal and coronal reformatted images were reconstructed from the axial data and reviewed. Comparisons: Radiograph same day FINDINGS: Visualized intrapelvic structures are unremarkable. Sacroiliac joints, pubic symphysis and hip joints are well-maintained. Diffuse osteopenia. No acute fractures seen. IMPRESSION: Diffuse ostomy without acute fracture identified. If the patient is acutely unable to bear weight MRI to rule out occult hip fracture is recommended. Exposure: One or more of the following in the visualized dose reduction techniques were utilized for this examination: 1. Automated exposure control 2. Adjustment of the MA and/or KV according to patient size 3. Use of iterative of reconstructive technique Electronically signed by: Lisseth Kam MD (11/25/2020 6:51 PM) [facility] DICTATED and SIGNED BY: LISSETH KAM MD DATE: 11/25/20 [id number] 0 [facility] [address] [place], [place] [id number] IMAGING REPORT Signed PATIENT: ANA SIMON ACCOUNT: [id number] : 1950 LOCATION: ER AGE: 70 SEX: F EXAM STATUS: REG ER ORD. PHYSICIAN: CJ CHATTERJEE MD REASON: fall PROCEDURE: PORTABLE CHEST 1V Exam performed: One view chest. Indication: Reason: fall / Spl. Instructions: / History: Date of Service: 11/25/2020 6:19 PM Comparison: 2 views chest from December 17, 2016. Single AP upright portable view chest findings: Cardiomediastinal silhouette is within upper limits of normal. Bipolar pacemaker. Lungs underexpanded No acute infiltrates, effusion or pneumothorax is detected. The bony structures are normal. Impression: No acute cardiopulmonary process is detected. Electronically signed by: Travis Cottrell MD (11/25/2020 7:17 PM) [facility] DICTATED and SIGNED BY: TRAVIS COTTRELL MD DATE: 11/25/20 [id number] 0 Course & Med Decision Making: Course & Med Decision Making Pertinent Labs and Imaging studies reviewed. (See chart for details) Patient 70-year-old female presents to the emergency room after falling onto her knees and hitting her head. She has a normal neurologic exam. CT head was ordered due to patient being on blood thinners. X-rays were ordered of bi lateral knees and hip. There signed out to me by Dr. Akhtar. [employer] fall and head injury with knee and hip pain. Patient had a head CT due to her age with head strike on Plavix. The head was negative. Patient is unable to ambulate and has some shortening of the right hip on x-ray. No acute fracture seen. Patient will have a CT of the hip and will need to be admitted. Patient will need physical therapy for contusions or if you consult if the hip is broken on CT. discussed case with Dr. Carvajal who will admit. Nathan Disclaimer: Nathan Disclaimer: This electronic medical record was generated, in whole or in part, using a voice recognition dictation system. Departure Departure Impression: Primary Impression: Fall Additional Impressions: CHI (closed head injury) Contusion of right knee Contusion of left knee Contusion of right hip Disposition: ADMITTED INPT THIS HOSP Admitting Physician: LIUDMILA GREENE) Condition: STABLE Referrals: LORRAINE ARTEAGA MD (PCP) Problem Qualifiers KENDRA AKHTAR MD Nov 25, 2020 17:25 CJ CHATTERJEE MD Nov 25, 2020 18:08
--- NOTE | 2020-11-25 17:36 | RAD ---
CT head without contrast: Reason for examination: Fell with headache. Axial images were obtained through the brain. No contrast was administered. Exposure: One or more of the following individualized dose reduction techniques were utilized for thi s examination: 1. Automated exposure control 2. Adjustment of the mA and/or kV according to patient size 3. Use of iterative reconstruction technique. Ventricular systems are prominent but symmetric consistent with some central atrophy which is unchang ed. There is no midline shift. There are some patchy deep white matter changes in the frontal and par ietal lobes consistent with microvascular ischemic changes. There is no evidence of intracranial hemo rrhage, infarct, mass or edema. No abnormalities of seen at the orbits. The paranasal sinuses are sudhakar ar. Mastoid air cells are clear. No acute abnormality seen in the skull. IMPRESSION: Prominent ventricles probably reflecting some central atrophy with some microvascular ischemic change s. These findings are stable. No acute intracranial abnormality evident. Electronically signed by: Dasia Cheatham MD (11/25/2020 5:34 PM) [id number]
[2020-11-25] MEDS ORDERED: oxyCODONE/APAP 5/325 1 TAB TABLET PO ONE (17:45)
--- NOTE | 2020-11-25 18:02 | RAD ---
Exam performed: X-ray bilateral knees and right hip HISTORY: Fall, pain. DATE OF SERVICE: 11/25/2020. COMPARISON: None available FINDINGS: AP lateral and oblique views of bilateral knees are obtained. There is mild narrowing of the medial l eft tibiofemoral joint. Moderate narrowing of the patellofemoral joint is seen with osteophytic spurr ing. There is also wqcs-yz-yyabrbjk narrowing of the right medial tibiofemoral and patellofemoral kourtney nt. Diffuse osteophytic spurring is seen. There is no acute fracture or dislocation. Diffuse soft tis jackeline swelling is noted. Single AP view pelvis and AP and frog-leg lateral view of the right hip is obtained. Normal alignment of hip and bilaterally joint is preserved. There is no acute fracture or dislocation. Mild foreshort ening of the right hip joint may be positional. Nonspecific bowel gas pattern seen. IMPRESSION: Moderate degenerative arthrosis involving bilateral knees. No acute findings seen. Diffuse soft tissu e swelling is present. Foreshortening of the right femoral neck is perhaps positional. If there is a clinical suspicion for fracture, evaluation with CT scan of the right hip may be obtained to rule out occult fracture. Electronically signed by: Lucy Cottrell MD (11/25/2020 5:59 PM) [facility]
--- NOTE | 2020-11-25 18:02 | RAD ---
Exam performed: X-ray bilateral knees and right hip HISTORY: Fall, pain. DATE OF SERVICE: 11/25/2020. COMPARISON: None available FINDINGS: AP lateral and oblique views of bilateral knees are obtained. There is mild narrowing of the medial l eft tibiofemoral joint. Moderate narrowing of the patellofemoral joint is seen with osteophytic spurr ing. There is also kujw-ql-bcwydidx narrowing of the right medial tibiofemoral and patellofemoral kourtney nt. Diffuse osteophytic spurring is seen. There is no acute fracture or dislocation. Diffuse soft tis jackeline swelling is noted. Single AP view pelvis and AP and frog-leg lateral view of the right hip is obtained. Normal alignment of hip and bilaterally joint is preserved. There is no acute fracture or dislocation. Mild foreshort ening of the right hip joint may be positional. Nonspecific bowel gas pattern seen. IMPRESSION: Moderate degenerative arthrosis involving bilateral knees. No acute findings seen. Diffuse soft tissu e swelling is present. Foreshortening of the right femoral neck is perhaps positional. If there is a clinical suspicion for fracture, evaluation with CT scan of the right hip may be obtained to rule out occult fracture. Electronically signed by: Lucy Cottrell MD (11/25/2020 5:59 PM) [facility]
[2020-11-25] MEDS ORDERED: ONDANSETRON PF 4 MG/2 ML VIAL. IV PRN (18:30)
[2020-11-25] MEDS ORDERED: MORPHINE SULFATE 2 MG/ML VIAL. IV PRN (18:30)
--- NOTE | 2020-11-25 18:53 | RAD ---
Exam: CT pelvis without contrast INDICATION: Fall, rule out right hip fracture TECHNIQUE: Sequential axial images through the pelvis obtained without IV contrast. Sagittal and marti nal reformatted images were reconstructed from the axial data and reviewed. Comparisons: Radiograph same day FINDINGS: Visualized intrapelvic structures are unremarkable. Sacroiliac joints, pubic symphysis and hip joints are well-maintained. Diffuse osteopenia. No acute fractures seen. IMPRESSION: Diffuse ostomy without acute fracture identified. If the patient is acutely unable to bear weight MRI to rule out occult hip fracture is recommended. Exposure: One or more of the following in the visualized dose reduction techniques were utilized for this examination: 1. Automated exposure control 2. Adjustment of the MA and/or KV according to patient size 3. Use of iterative of reconstructive technique Electronically signed by: Lisseth Harley MD (11/25/2020 6:51 PM) [facility]
[2020-11-25 19:12] LABS: BASO % 1 % (0-3); EOS # 0.2 x10^3/uL (0.0-0.7); EOS % 2 % (0-3); HEMATOCRIT 38.9 % (36.0-47.0); HEMOGLOBIN 13.1 g/dL (12.0-15.5); LYMPH # 1.3 x10^3/uL (1.0-4.8); LYMPH % 14 % (24-48); MEAN CORPUSCULAR HEMOGLOBIN 33 pg (25-35); MEAN CORPUSCULAR HGB CONC 34 g/dL (31-37); MEAN CORPUSCULAR VOLUME 97 fL (79-100); MONO # 0.7 x10^3/uL (0.0-1.1); MONO % 7 % (0-9); NEUT % 76 % (31-73); PLATELET COUNT 231 x10^3/uL (140-400); RED BLOOD COUNT 3.99 x10^6/uL (3.50-5.40); RED CELL DISTRIBUTION WIDTH 14.8 % (11.5-14.5); WHITE BLOOD COUNT 9.2 x10^3/uL (4.0-11.0)
--- NOTE | 2020-11-25 19:14 | PDOC1 ---
History and Physical Date of Admission Date of Admission DATE: 11/25/20 TIME: 18:58 Source Source: Chart review, Patient History of Present Illness History of Present Illness Patient 68-year-old female with past medical history morbid obesity, who presents to the ER after having mechanical fall at home. Fall occurred when she was reaching for cleaning ball in her kitchen, when she tripped landing on both knees and her right side. She supposed to ambulate with a walker but was not using her walker today. She began complaining of throbbing/aching pain in her right hip since that time, 03/09. She reportedly hit her head against her refrigerator. She denies any loss of consciousness. Patient takes aspirin and Plavix due to history of NM. X-ray and CT obtained in the ER were negative for any definitive acute fracture. Patient still having difficulty with weightbearing and ambulation secondary to pain. Will admit patient for further medical management and likely skilled rehab. Past Medical History Cardiovascular: AFIB, CAD, HTN, NM, Hyperlipidemia, Other Pulmonary: COPD CENTRAL NERVOUS SYSTEM: Other GI: Other Heme/Onc: No pertinent hx Hepatobiliary: No pertinent hx Psych: No pertinent hx Musculoskeletal: Osteoarthritis Rheumatologic: No pertinent hx Infectious disease: No pertinent hx Renal/: No pertinent hx Endocrine: Diabetes Past Surgical History Past Surgical History: Pacemaker, Cholecystectomy, Tubal Ligation Family History Family History: Diabetes, Heart Disease, Hypertension Social History Smoke: No ALCOHOL: none Drugs: None Current Problem List Problem List Problems Medical Problems: (1) CHI (closed head injury) Status: Acute (2) Contusion of left knee Status: Acute (3) Contusion of right hip Status: Acute (4) Contusion of right knee Status: Acute (5) Fall Status: Acute Current Medications Current Medications Current Medications Oxycodone/ Acetaminophen (Percocet 5/325) 2 tab 1X ONCE PO Last administered on 11/25/20at 17:47; Start 11/25/20 at 17:45; Stop 11/25/20 at 17:46; Status DC Ondansetron HCl (Zofran) 4 mg PRN Q8HRS PRN IV NAUSEA/VOMITING; Start 11/25/20 at 18:30; Stop 11/26/20 at 18:29 Morphine Sulfate (Morphine Sulfate) 2 mg PRN Q2HR PRN IV PAIN; Start 11/25/20 at 18:30; Stop 11/26/20 at 18:29 Active Scripts Active Icy Hot Cream (Methyl Salicylate/Menthol) 35.4 Gm Cream..g. 1 Gm TP BID 7 Days Amiodarone Hcl 200 Mg Tablet 1 Tab PO DAILY Reported Gabapentin 100 Mg Capsule 100 Mg PO BID Aspir 81 (Aspirin) 81 Mg Tablet.dr 1 Tab PO HS Vitamin B12 (Cyanocobalamin (Vitamin B-12)) 2,500 Mcg Tab.chew 0 PO DAILY UNKNOWN DOSE Vitamin C (Ascorbic Acid) 500 Mg Tab.chew 0 PO DAILY UNKNOWN DOSE Krill Oil 500 Mg Capsule 0 PO DAILY Entresto 49 mg-51 mg Tablet (Sacubitril/Valsartan) 1 Each Tablet 1 Each PO BID Isosorbide Mononitrate Er (Isosorbide Mononitrate) 60 Mg Tab.er.24h 1 Tab PO DAILY Labetalol Hcl 100 Mg Tablet 200 Mg PO BID Diltiazem 24HR Cd (Diltiazem Hcl) 180 Mg Cap.er.24h 180 Mg PO DAILY Bumetanide 0.5 Mg Tablet 0.5 Mg PO DAILY Atorvastatin Calcium 20 Mg Tablet 20 Mg PO HS Plavix (Clopidogrel Bisulfate) 75 Mg Tablet 75 Mg PO DAILY Allergies Allergies: Coded Allergies: ELVIRA Inhibitors (Verified Allergy, Intermediate, 10/16/17) adhesive tape (Verified Allergy, Intermediate, 10/16/17) IF LEFT ON SKIN ALONG TIME codeine (Verified Allergy, Intermediate, 11/25/20) Oxycodone and tramadol ok ROS Review of System GENERAL: No history of weight change, weakness or fevers. SKIN: No bruising, hair changes or rashes. EYES: No blurred, double or loss of vision. NOSE AND THROAT: No history of nosebleeds, hoarseness or sore throat. HEART: Denies chest pain, denies palpitations. LUNGS: Denies cough, hemoptysis, wheezing or shortness of breath. GASTROINTESTINAL: Denies nausea, vomiting, abdominal pain. GENITOURINARY: Denies dysuria, frequency, urgency, hematuria. NEUROLOGIC: Denies history of numbness, tingling, tremor or weakness. PSYCHIATRIC: Denies anxiety, denies depression. ENDOCRINE: No history of heat or cold intolerance, polyuria or polydipsia. EXTREMITIES: Right hip pain, pain with walking. Physical Exam Physical Exam General: Alert, Oriented X3, Cooperative, mild distress, obese HEENT: PERRLA, EOMI Lungs: Clear to auscultation, Normal air movement Heart: RRR, no murmurs Cardiovascular: S1, S2 Abdomen: Normal bowel sounds, Soft, No tenderness Extremities: Bilateral knee tenderness. Right hip tenderness. No clubbing, No cyanosis Skin: No rashes, No significant lesion Neuro: Normal speech, Normal tone, Sensation intact Psych/Mental Status: Mental status NL, Mood NL Vitals Vitals Vital Signs Date Time Temp Pulse Resp B/P (MAP) Pulse Ox O2 Delivery O2 Flow Rate FiO2 11/25/20 16:19 98.5 76 18 172/81 (111) 95 Room Air 98.5 Images Images IMAGING REPORT Signed PATIENT: ANA SIMON ACCOUNT: [id number] : 1950 LOCATION: ER AGE: 70 SEX: F EXAM STATUS: REG ER ORD. PHYSICIAN: KENDRA AKHTAR MD REASON: fall, pain PROCEDURE: HIP RIGHT 2V WITH PELVIS Exam performed: X-ray bilateral knees and right hip HISTORY: Fall, pain. DATE OF SERVICE: 11/25/2020. COMPARISON: None available FINDINGS: AP lateral and oblique views of bilateral knees are obtained. There is mild narrowing of the medial left tibiofemoral joint. Moderate narrowing of the patellofemoral joint is seen with osteophytic spurring. There is also [id number] narrowing of the right medial tibiofemoral and patellofemoral joint. Diffuse osteophytic spurring is seen. There is no acute fracture or dislocation. Diffuse soft tissue swelling is noted. Single AP view pelvis and AP and frog-leg lateral view of the right hip is obtained. Normal alignment of hip and bilaterally joint is preserved. There is no acute fracture or dislocation. Mild foreshortening of the right hip joint may be positional. Nonspecific bowel gas pattern seen. IMPRESSION: Moderate degenerative arthrosis involving bilateral knees. No acute findings seen. Diffuse soft tissue swelling is present. Foreshortening of the right femoral neck is perhaps positional. If there is a clinical suspicion for fracture, evaluation with CT scan of the right hip may be obtained to rule out occult fracture. Electronically signed by: Lucy Cottrell MD (11/25/2020 5:59 PM) [facility] DICTATED and SIGNED BY: LUCY COTTRELL MD DATE: 11/25/[id number] [facility] [address] [place] [address] IMAGING REPORT Signed PATIENT: ANA SIMON ACCOUNT: [id number] : 1950 LOCATION: ER AGE: 70 SEX: F EXAM STATUS: REG ER ORD. PHYSICIAN: KENDRA AKHTAR MD REASON: fall pain PROCEDURE: CT HEAD WO CONTRAST CT head without contrast: Reason for examination: Fell with headache. Axial images were obtained through the brain. No contrast was administered. Exposure: One or more of the following individualized dose reduction techniques were utilized for this examination: 1. Automated exposure control 2. Adjustment of the mA and/or kV according to patient size 3. Use of iterative reconstruction technique. Ventricular systems are prominent but symmetric consistent with some central atrophy which is unchanged. There is no midline shift. There are some patchy deep white matter changes in the frontal and parietal lobes consistent with microvascular ischemic changes. There is no evidence of intracranial hemorrhage, infarct, mass or edema. No abnormalities of seen at the orbits. The paranasal sinuses are clear. Mastoid air cells are clear. No acute abnormality seen in the skull. IMPRESSION: Prominent ventricles probably reflecting some central atrophy with some microvascular ischemic changes. These findings are stable. No acute intracranial abnormality evident. Exam: CT pelvis without contrast INDICATION: Fall, rule out right hip fracture TECHNIQUE: Sequential axial images through the pelvis obtained without IV contrast. Sagittal and coronal reformatted images were reconstructed from the axial data and reviewed. Comparisons: Radiograph same day FINDINGS: Visualized intrapelvic structures are unremarkable. Sacroiliac joints, pubic symphysis and hip joints are well-maintained. Diffuse osteopenia. No acute fractures seen. IMPRESSION: Diffuse ostomy without acute fracture identified. If the patient is acutely unable to bear weight MRI to rule out occult hip fracture is recommended. VTE Prophylaxis Ordered VTE Prophylaxis Devices: No VTE Pharmacological Prophylaxi: Yes Assessment/Plan Assessment/Plan Physical debility Morbid obesity A. fib DM2 Hypertension History of NM Plan: Patient had mechanical fall with head injury. CT head was negative, but patient is unable to ambulate secondary to pain. No evidence of fracture seen on CT pelvis Will provide pain management Consult to physical therapy Patient require at least 2 midnights for likely SNF placement History SS insulin Resume home medications FEN - Cardiac diet PPX - Heparin FULL CODE Dispo - inpatient for above Justifications for Admission Other Justification JALEN BAZAN MD Nov 25, 2020 19:13
[2020-11-25] MEDS ORDERED: MAG HYDROX/ALUMINUM HYD/SIMETH 30 ML ORAL.SUSP PO PRN (19:15)
[2020-11-25] MEDS ORDERED: MAGNESIUM HYDROXIDE 2,400 MG/30 ML ORAL.SUSP. PO PRN (19:15)
[2020-11-25] MEDS ORDERED: ZOLPIDEM 5 MG TABLET. PO PRN (19:15)
[2020-11-25] MEDS ORDERED: BISACODYL 10 MG SUPP.RECT. PR PRN (19:15)
[2020-11-25] MEDS ORDERED: ONDANSETRON PF 4 MG/2 ML VIAL. IVP PRN (19:15)
[2020-11-25] MEDS ORDERED: ACETAMINOPHEN 325 MG TABLET. PO PRN (19:15)
[2020-11-25] MEDS ORDERED: CALCIUM CARBONATE 500 MG TAB.CHEW PO PRN (19:15)
[2020-11-25] MEDS ORDERED: PROCHLORPERAZINE 10 MG/2 ML VIAL. IVP PRN (19:15)
[2020-11-25 19:19] LABS: CALCIUM 9.9 mg/dL (8.5-10.1); GFR 54.5; POTASSIUM 4.5 mmol/L (3.5-5.1)
--- NOTE | 2020-11-25 19:20 | RAD ---
Exam performed: One view chest. Indication: Reason: fall / Spl. Instructions: / History: Date of Service: 11/25/2020 6:19 PM Comparison: 2 views chest from December 17, 2016. Single AP upright portable view chest findings: Cardiomediastinal silhouette is within upper limits of normal. Bipolar pacemaker. Lungs underexpanded No acute infiltrates, effusion or pneumothorax is detected. The bony structures are normal. Impression: No acute cardiopulmonary process is detected. Electronically signed by: Lucy Cottrell MD (11/25/2020 7:17 PM) [facility]
[2020-11-25] MEDS ORDERED: LABETALOL 20 MG/4 ML DISP.SYRIN. IVP PRN (19:45)
[2020-11-25] MEDS ORDERED: DEXTROSE 50% 25 GM / 50ML DISP.SYRIN. IV PRN (19:45)
[2020-11-25] MEDS: ATORVASTATIN CALCIUM 20 MG TABLET PO SCH (21:00)
[2020-11-25] MEDS: ENOXAPARIN 40 MG/0.4 ML SYRINGE. SQ SCH (21:00)
[2020-11-25] MEDS: ASPIRIN ENTERIC COATED 81 MG TABLET.DR. PO SCH (21:04)
[2020-11-25] MEDS: LABETALOL HCL 200 MG TABLET PO SCH (21:05)
[2020-11-25 23:00] VITALS: BP 126/75
[2020-11-26] VITALS (7 sets, daily range): BP systolic 86–141; BP diastolic 42–67
[2020-11-26] MEDS: INSULIN LISPRO 300 UNITS/3 ML VIAL. SQ SCH ×3 (08:00→17:00)
[2020-11-26 08:30] LABS: BASO % 0 % (0-3); EOS # 0.1 x10^3/uL (0.0-0.7); EOS % 1 % (0-3); HEMOGLOBIN 12.2 g/dL (12.0-15.5); LYMPH # 1.6 x10^3/uL (1.0-4.8); LYMPH % 20 % (24-48); MEAN CORPUSCULAR HEMOGLOBIN 32 pg (25-35); MEAN CORPUSCULAR HGB CONC 33 g/dL (31-37); MEAN CORPUSCULAR VOLUME 98 fL (79-100); MONO # 0.9 x10^3/uL (0.0-1.1); MONO % 11 % (0-9); NEUT # 5.3 x10^3/uL (1.8-7.7); NEUT % 67 % (31-73); PLATELET COUNT 223 x10^3/uL (140-400); RED BLOOD COUNT 3.79 x10^6/uL (3.50-5.40); RED CELL DISTRIBUTION WIDTH 14.6 % (11.5-14.5); WHITE BLOOD COUNT 7.9 x10^3/uL (4.0-11.0)
[2020-11-26 08:50] LABS: CALCIUM 9.6 mg/dL (8.5-10.1); CREATININE 0.9 mg/dL (0.6-1.0); GFR 61.5; POTASSIUM 3.7 mmol/L (3.5-5.1)
[2020-11-26] MEDS: BUMETANIDE 1 MG TABLET. PO SCH (09:00)
[2020-11-26] MEDS: GABAPENTIN 100 MG CAPSULE. PO SCH ×3 (09:00→20:47)
[2020-11-26] MEDS: SACUBITRIL/VALSARTAN 49/51MG TABLET. PO SCH ×3 (10:15→20:44)
[2020-11-26] MEDS: LABETALOL HCL 200 MG TABLET PO SCH ×3 (10:25→20:44)
[2020-11-26] MEDS: ISOSORBIDE MONONITRATE ER 30 MG TAB.ER.24H PO SCH (10:29)
[2020-11-26] MEDS: CLOPIDOGREL BISULFATE 75 MG TABLET PO SCH (10:31)
[2020-11-26] MEDS: ENOXAPARIN 40 MG/0.4 ML SYRINGE. SQ SCH ×2 (10:32→20:31)
[2020-11-26] MEDS: HYDROcodone/APAP 5/325MG 1 TAB TABLET PO PRN ×2 (11:17→20:35)
--- NOTE | 2020-11-26 11:20 | PDOC ---
[employer] PROGRESS NOTE Date of Service DOS: DATE: 11/26/20 TIME: 11:16 Chief Complaint Chief Complaint Physical debility Morbid obesity A. fib DM2 Hypertension History of MA Hyperglycemia History of Present Illness History of Present Illness 11/26/2020 Patient seen and examined Resting with no acute distressed Discussed with RN Discussed with case packer Resting comfortably Patient complains of back pain - keep overnight because she cannot use her knees, as stated by patient Complains of knee pain States she would like to go home as soon as she can Vitals/I&O Vitals/I&O: Vital Signs Date Time Temp Pulse Resp B/P (MAP) Pulse Ox O2 Delivery O2 Flow Rate FiO2 11/26/20 10:29 67 141/67 11/26/20 07:00 98.4 18 98 Nasal Cannula 4.0 98.4 Physical Exam General: Alert, Oriented X3 Heart: Regular rate Lungs: Clear Abdomen: Normal bowel sounds, No tenderness, Other Extremities: No clubbing Skin: No rashes Labs Labs: Laboratory Tests Test 11/25/20 19:00 11/26/20 07:40 White Blood Count 9.2 x10^3/uL (4.0-11.0) 7.9 x10^3/uL (4.0-11.0) Red Blood Count 3.99 x10^6/uL (3.50-5.40) 3.79 x10^6/uL (3.50-5.40) Hemoglobin 13.1 g/dL (12.0-15.5) 12.2 g/dL (12.0-15.5) Hematocrit 38.9 % (36.0-47.0) 37.0 % (36.0-47.0) Mean Corpuscular Volume 97 fL (79-100) 98 fL (79-100) Mean Corpuscular Hemoglobin 33 pg (25-35) 32 pg (25-35) Mean Corpuscular Hemoglobin Concent 34 g/dL (31-37) 33 g/dL (31-37) Red Cell Distribution Width 14.8 % (11.5-14.5) 14.6 % (11.5-14.5) Platelet Count 231 x10^3/uL (140-400) 223 x10^3/uL (140-400) Neutrophils (%) (Auto) 76 % (31-73) 67 % (31-73) Lymphocytes (%) (Auto) 14 % (24-48) 20 % (24-48) Monocytes (%) (Auto) 7 % (0-9) 11 % (0-9) Eosinophils (%) (Auto) 2 % (0-3) 1 % (0-3) Basophils (%) (Auto) 1 % (0-3) 0 % (0-3) Neutrophils # (Auto) 7.0 x10^3/uL (1.8-7.7) 5.3 x10^3/uL (1.8-7.7) Lymphocytes # (Auto) 1.3 x10^3/uL (1.0-4.8) 1.6 x10^3/uL (1.0-4.8) Monocytes # (Auto) 0.7 x10^3/uL (0.0-1.1) 0.9 x10^3/uL (0.0-1.1) Eosinophils # (Auto) 0.2 x10^3/uL (0.0-0.7) 0.1 x10^3/uL (0.0-0.7) Basophils # (Auto) 0.0 x10^3/uL (0.0-0.2) 0.0 x10^3/uL (0.0-0.2) Sodium Level 140 mmol/L (136-145) 143 mmol/L (136-145) Potassium Level 4.5 mmol/L (3.5-5.1) 3.7 mmol/L (3.5-5.1) Chloride Level 105 mmol/L (98-107) 106 mmol/L (98-107) Carbon Dioxide Level 25 mmol/L (21-32) 30 mmol/L (21-32) Anion Gap 10 (6-14) 7 (6-14) Blood Urea Nitrogen 16 mg/dL (7-20) 13 mg/dL (7-20) Creatinine 1.0 mg/dL (0.6-1.0) 0.9 mg/dL (0.6-1.0) Estimated GFR (Cockcroft-Gault) 54.5 61.5 Glucose Level 113 mg/dL (70-99) 83 mg/dL (70-99) Calcium Level 9.9 mg/dL (8.5-10.1) 9.6 mg/dL (8.5-10.1) Review of Systems Review of Systems: Slight bilateral lower extremity redness and swelling Assessment and Plan Assessmemt and Plan Problems Medical Problems: (1) CHI (closed head injury) Status: Acute (2) Contusion of left knee Status: Acute (3) Contusion of right hip Status: Acute (4) Contusion of right knee Status: Acute (5) Fall Status: Acute ASSESSMENT Physical debility Morbid obesity A. fib DM2 Hypertension History of MA Hyperglycemia PLAN PT/OT Continue pain meds CPAP at HS Discharge disposition pending, possibly rehab Home meds DVT ppx Full code Comment Review of Relevant I have reviewed the following items pedro luis (where applicable) has been applied. Medications: Current Medications Medications (Trade) Dose Ordered Sig/Adrianna Route PRN Reason Start Time Stop Time Status Last Admin Dose Admin Oxycodone/ Acetaminophen (Percocet 5/325) 2 tab 1X ONCE PO 11/25/20 17:45 11/25/20 17:46 DC 11/25/20 17:47 Morphine Sulfate (Morphine Sulfate) 2 mg PRN Q2HR PRN IV PAIN 11/25/20 18:30 11/26/20 18:29 11/25/20 22:59 Enoxaparin Sodium (Lovenox 40mg Syringe) 40 mg Q12HR SQ 11/25/20 21:00 11/26/20 10:32 Aspirin (Ecotrin) 81 mg HS PO 11/25/20 21:00 11/25/20 21:04 Clopidogrel Bisulfate (Plavix) 75 mg DAILY PO 11/26/20 09:00 11/26/20 10:31 Diltiazem HCl (Cardizem 24hr Cd) 180 mg DAILY PO 11/26/20 09:00 11/26/20 10:28 Labetalol HCl (Trandate) 200 mg BID PO 11/25/20 21:00 11/26/20 10:25 Sacubitril/ Valsartan (Entresto 49 Mg-51 Mg) 1 tab BID PO 11/26/20 09:00 11/26/20 10:15 Isosorbide Mononitrate (Imdur) 60 mg DAILY PO 11/26/20 09:00 11/26/20 10:29 Justifications for Admission Other Justification Physical debility, intractable pain JAKE BARGER III DO Nov 26, 2020 11:20
--- NOTE | 2020-11-26 12:20 | NUR ---
ANALISA following for discharge planning. Spoke with RN and reviewed chart. Met with patient. Pt from home alone. PT/OT recommendation for acute rehab. Pt on room air, IV pain medication, NPO. Pt agreeable to referral to [facility] acute rehab. Patient choice of vendor form completed. Referral phoned and faxed. ANALISA confirmed with Marquise that COVID test not needed for admission to acute rehab. SW following. Addendum: 11/26/20 at 1411 by TAN HAUSER Pt accepted at [facility] for discharge on 11/27 per Jeanie ([phone])
[2020-11-26] MEDS: ATORVASTATIN CALCIUM 20 MG TABLET PO SCH ×2 (20:32→20:46)
[2020-11-26] MEDS: ASPIRIN ENTERIC COATED 81 MG TABLET.DR. PO SCH (20:33)
[2020-11-27 03:04] VITALS: BP 129/53
[2020-11-27 07:00] VITALS: BP 144/63
[2020-11-27] MEDS: INSULIN LISPRO 300 UNITS/3 ML VIAL. SQ SCH ×3 (08:00→16:55)
[2020-11-27] MEDS: BUMETANIDE 1 MG TABLET. PO SCH (09:00)
[2020-11-27] MEDS: SACUBITRIL/VALSARTAN 49/51MG TABLET. PO SCH (09:56)
[2020-11-27] MEDS: ISOSORBIDE MONONITRATE ER 30 MG TAB.ER.24H PO SCH (09:56)
[2020-11-27] MEDS: CLOPIDOGREL BISULFATE 75 MG TABLET PO SCH (09:57)
[2020-11-27] MEDS: LABETALOL HCL 200 MG TABLET PO SCH (09:58)
[2020-11-27] MEDS: ENOXAPARIN 40 MG/0.4 ML SYRINGE. SQ SCH (09:58)
[2020-11-27] MEDS: HYDROcodone/APAP 5/325MG 1 TAB TABLET PO PRN ×2 (10:07→16:57)
--- NOTE | 2020-11-27 10:26 | SNU/HH DC ---
DISCHARGE ORDERS DISCHARGE INFORMATION: FINAL DIAGNOSIS Problems Medical Problems: (1) CHI (closed head injury) Status: Acute (2) Contusion of left knee Status: Acute (3) Contusion of right hip Status: Acute (4) Contusion of right knee Status: Acute (5) Fall Status: Acute CONDITION ON DISCHARGE: Stable CODE STATUS: Code Status: Full SENIOR LIVING: SNF STAY <30 DAYS: No HOSPICE: HOSPICE: No HOSPICE EVAL & TREAT: No LTAC: ADMIT TO LTAC: Yes POST DISCHARGE ORDERS: ACTIVITY ORDERS: Resume previous activity WEIGHT BEARING STATUS: No restrictions DIET AFTER DISCHARGE: Cardiac WOUND/INCISION CARE: Change dressing CHECKS AFTER DISCHARGE: CHECKS AFTER DISCHARGE: Check blood press - daily, Weigh Yourself Daily TREATMENT/EQUIPMENT ORDERS: ADAPTIVE EQUIPMENT NEEDED: None RESPIRATORY EQUIPMENT NEEDED: Oxygen Physical Therapy For: Evalulation/Treatment Occupational Therapy For: Evaluation/Treatment Speech Language Pathology For: Evaluation/Treatment DISCHARGE MEDICATIONS: Home Meds Active Scripts Methyl Salicylate/Menthol (ICY HOT CREAM) 35.4 Gm Cream..g., 1 GM TP BID for 7 Days, #1 EACH Prov:Mayur IRBY MD 01/03/18 Amiodarone Hcl (AMIODARONE HCL) 200 Mg Tablet, 1 TAB PO DAILY, #90 TAB 1 Refill Prov:DELFINO GUZMAN MD 01/23/16 Reported Medications Gabapentin (GABAPENTIN ) 100 Mg Capsule, 100 MG PO BID, CAP 03/03/18 Aspirin (ASPIR 81) 81 Mg Tablet.dr, 1 TAB PO HS, #30 TAB 5 Refills 10/13/17 Cyanocobalamin (Vitamin B-12) (Vitamin B12) 2,500 Mcg Tab.chew, 0 PO DAILY, TAB.CHEW UNKNOWN DOSE 10/08/17 Ascorbic Acid (VITAMIN C) 500 Mg Tab.chew, 0 PO DAILY, TAB.CHEW UNKNOWN DOSE 10/08/17 Krill Oil (KRILL OIL) 500 Mg Capsule, 0 PO DAILY, CAP 10/08/17 Sacubitril/Valsartan (Entresto 49 mg-51 mg Tablet) 1 Each Tablet, 1 EACH PO BID, TAB 10/08/17 Isosorbide Mononitrate (ISOSORBIDE MONONITRATE ER) 60 Mg Tab.er.24h, 1 TAB PO DAILY, #30 TAB 5 Refills 12/16/16 Labetalol Hcl (LABETALOL HCL) 100 Mg Tablet, 200 MG PO BID 12/16/16 Diltiazem Hcl (DILTIAZEM 24HR CD) 180 Mg Cap.er.24h, 180 MG PO DAILY, CAP.SR 01/22/16 Bumetanide (BUMETANIDE) 0.5 Mg Tablet, 0.5 MG PO DAILY 06/01/15 Atorvastatin Calcium (ATORVASTATIN CALCIUM) 20 Mg Tablet, 20 MG PO HS for FOR CHOLESTEROL, #30 TAB 0 Refills 11/26/14 Clopidogrel Bisulfate (PLAVIX) 75 Mg Tablet, 75 MG PO DAILY for TO PREVENT BLOOD CLOTS, #30 TAB 0 Refills 08/20/14 JAKE BARGER III DO Nov 27, 2020 10:26
--- NOTE | 2020-11-27 10:40 | PDOC ---
[employer] PROGRESS NOTE Date of Service DOS: DATE: 11/27/20 TIME: 10:33 Chief Complaint Chief Complaint Physical disability Morbid obesity A. fib DM2 Hypertension History of MII History of Present Illness History of Present Illness 11/27/2020 Patient seen and examined Patient is resting comfortably with no acute distress Discussed with RN Discussed with renal case manager Charts reviewed 11/26/2020 Patient seen and examined Resting with no acute distress Discussed with RN Discussed with renal case manager Resting comfortably Patient complains of back pain - keep overnight because she cannot use her knees, as stated by patient Complains of knee pain States she would like to go home as soon as she can Vitals/I&O Vitals/I&O: Vital Signs Date Time Temp Pulse Resp B/P (MAP) Pulse Ox O2 Delivery O2 Flow Rate FiO2 11/27/20 10:07 19 86 Room Air 11/27/20 09:58 78 144/63 11/27/20 03:04 98.3 98.3 11/26/20 20:35 4.0 I & O 11/26/20 11/26/20 11/27/20 15:00 23:00 07:00 Intake Total 240 ml 360 ml Output Total 400 ml Balance 240 ml -40 ml Physical Exam General: Alert, Oriented X3 Heart: Regular rate Lungs: Clear Abdomen: Normal bowel sounds, No tenderness, Other Extremities: No clubbing Skin: No rashes Labs Labs: Laboratory Tests Test 11/26/20 12:03 11/26/20 17:06 11/26/20 20:39 11/27/20 08:13 Glucose (Fingerstick) 94 mg/dL (70-99) 202 mg/dL (70-99) 101 mg/dL (70-99) 99 mg/dL (70-99) Assessment and Plan Assessmemt and Plan Problems Medical Problems: (1) CHI (closed head injury) Status: Acute (2) Contusion of left knee Status: Acute (3) Contusion of right hip Status: Acute (4) Contusion of right knee Status: Acute (5) Fall Status: Acute ASSESSMENT Physical disability Morbid obesity A. fib DM2 Hypertension History of IN PLAN Discharge disposition possibly SNU tomorrow PT/OT Home meds DVT ppx Trend labs Full code Comment Review of Relevant I have reviewed the following items pedro luis (where applicable) has been applied. Justifications for Admission Other Justification Physical debility, intractable pain CASTLE,NIAL K III DO Nov 27, 2020 10:40
--- NOTE | 2020-11-27 10:46 | DS ---
DATE OF DISCHARGE: 11/27/2020 ADMISSION DIAGNOSIS: Fall with right hip contusion. DISCHARGE DIAGNOSES: Resolving right hip contusion, obesity, atrial fibrillation, diabetes, hypertension, hyperlipidemia, hyperglycemia. HOSPITAL COURSE: The patient is a pleasant elderly female who fell and suffered a hip contusion. She was admitted. We gave her pain meds, did some physical therapy and occupational therapy. Over the past couple of days, she is doing better. [facility] We [facility] to discharge to [facility]. DISPOSITION: [facility]. ACTIVITY: As tolerated. DIET: Low sodium. MEDICATIONS: Please see the MRAD. TOTAL TIME: 34 minutes. JAKE BARGER DO DR: LANA/christel JOB#: [id number] / [id number]
[2020-11-27 11:00] VITALS: BP 118/53
[2020-11-27 15:00] VITALS: BP 105/63
--- NOTE | 2020-11-27 15:53 | NUR ---
SW following for discharge planning. Spoke with RN and reviewed chart. Discharge orders (including script for Lortab) phoned and faxed to Jeanie at [facility]. Packet of clinicals updated and ready to be sent with pt. Transportation arranged for [id number]. Patient notified and agreeable. RN to call report. No further SW needs at this time.
--- NOTE | 2020-11-27 16:40 | NUR ---
REPORT CALL[facility], QUESTIONS AND CONCERNS ANSWERED, PHONE NUMBER GIVEN TO RECEIVING NURSE FOR FURTHER QUESTIONS.
--- NOTE | 2020-11-27 17:40 | NUR ---
PATIENT LEAVES THE UNIT PER W/C AND ACCOMPANIED BY THE FILLER IN, SALINE LOCK REMOVED FROM PATIENTS LEFT AC PRIOR TO DISCHARGE, EMOTIONAL SUPPORT GIVEN, FOLLOW UP APPOINTMENTS ENCOURAGED.
== END 2020-11-27 17:40 | DRG 605 ==
LOC: ER 16:19 → ED HOLD 20:06 → 5 NORTH 21:35
PROVIDERS: ADMIT Family Medicine; ATTEND Family Medicine
DX: S70.01XA Contusion of right hip, initial encounter (principal); Z68.42 Body mass index [BMI] 45.0-49.9, adult; E11.65 Type 2 diabetes mellitus with hyperglycemia; E66.01 Morbid (severe) obesity due to excess calories; E78.5 Hyperlipidemia, unspecified; I11.0 Hypertensive heart disease with heart failure; I48.91 Unspecified atrial fibrillation; I50.9 Heart failure, unspecified; J44.9 Chronic obstructive pulmonary disease, unspecified; M19.90 Unspecified osteoarthritis, unspecified site; S80.01XA Contusion of right knee, initial encounter; S80.02XA Contusion of left knee, initial encounter; I25.10 Atherosclerotic heart disease of native coronary artery without angina pectoris; W01.0XXA Fall on same level from slipping, tripping and stumbling without subsequent striking against object, initial encounter; I25.2 Old myocardial infarction; Z79.02 Long term (current) use of antithrombotics/antiplatelets; Z79.82 Long term (current) use of aspirin; Z82.49 Family history of ischemic heart disease and other diseases of the circulatory system; Z83.3 Family history of diabetes mellitus; Z95.5 Presence of coronary angioplasty implant and graft; Z90.49 Acquired absence of other specified parts of digestive tract; Z88.8 Allergy status to other drugs, medicaments and biological substances; Z88.5 Allergy status to narcotic agent; Y93.89 Activity, other specified; Y92.89 Other specified places as the place of occurrence of the external cause; Y99.8 Other external cause status; Z98.51 Tubal ligation status
CPT/HCPCS: 36415; 70450; 71045; 72192; 73502; 73562; 80048; 82962; 85025; 96374; J1650; J1815; J2270; 97535-GO; 99285-25; G0378

== ENCOUNTER 2021-06-01 13:01 | Observation (INO) | payer MEDICARE ==
[~2021-06-01] VITALS: Ht 157.5 cm; Wt 122.3 kg
[~2021-06-01 13:01] MED LIST changes: -ISOS60TA2 PO; +ISOS60TA55 PO
--- NOTE | 2021-06-01 13:24 | ED.ADGEN ---
Past Medical History Past Medical History: A-Fib, CHF, Diabetes-Type II, Hypertension, CO, Other Additional Past Medical Histor: OBESE,RESPIRATORY FAILURE Past Surgical History: Cholecystectomy, Tubal ligation, Other Additional Past Surgical Histo: CARDIAC STENTS Smoking Status: Never Smoker Alcohol Use: None Drug Use: None General Adult EDM: Chief Complaint: NEAR SYNCOPE HPI: HPI: Patient is a 71 year old female coming in via EMS for lightheadedness and feeling she was going to pass out, also complaining of nausea but no vomiting. Patient states symptoms came on suddenly while she was sitting on a piano. Also felt flushed. Patient states she was feeling well prior. Says she has had normal p.o. intake, no heat exposure. Patient has a pacemakerdefibrillator that was placed November 2016 and is a biometric. She has not felt the defibrill ator fire today or anytime since has been placed. Review of Systems: Review of Systems: All other systems within normal limits except for as noted in the HPI Current Medications: Current Medications Medications (Trade) Dose Ordered Sig/Adrianna Start Time Stop Time Status Last Admin Dose Admin Info (CONTRAST GIVEN -- Rx MONITORING) 1 each PRN DAILY PRN 06/01/21 15:15 06/03/21 15:14 Iohexol (Omnipaque 350 Mg/ml) 90 ml 1X ONCE 06/01/21 15:00 06/01/21 15:01 DC 06/01/21 15:10 90 ML Allergies: Allergies: Allergies Coded Allergies Type Severity Reaction Last Updated Verified ELVIRA Inhibitors Allergy Intermediate 10/16/17 Yes adhesive tape Allergy Intermediate 10/16/17 Yes codeine Allergy Intermediate 11/25/20 Yes Physical Exam: PE: Constitutional: Well developed, well nourished, no acute distress, non-toxic appearance. [] HENT: Normocephalic, atraumatic, bilateral external ears normal, nose normal. [] Eyes: PERRLA, conjunctiva normal, no discharge. [] Neck: No rigidity, supple, no stridor. [] Cardiovascular: Regular rate and rhythm, brisk cap refill [] Lungs & Thorax: Non labored symmetric respirations, no tachypnea or respiratory distress [] Abdomen: Soft, nondistended, nontender palpation. Skin: Warm, dry, no erythema, no rash. [] Back: Unremarkable Extremities: No deformities, range of motion grossly intact, bilateral 1+ lower extremity edema [] Neurologic: Alert and oriented X 3, no focal deficits noted. [] Psychologic: Affect normal, judgement normal, mood normal. [] Current Patient Data: Labs: Laboratory Tests Test 06/01/21 14:00 White Blood Count 7.1 x10^3/uL (4.0-11.0) Red Blood Count 4.26 x10^6/uL (3.50-5.40) Hemoglobin 13.6 g/dL (12.0-15.5) Hematocrit 41.0 % (36.0-47.0) Mean Corpuscular Volume 96 fL (79-100) Mean Corpuscular Hemoglobin 32 pg (25-35) Mean Corpuscular Hemoglobin Concent 33 g/dL (31-37) Red Cell Distribution Width 14.9 % (11.5-14.5) H Platelet Count 233 x10^3/uL (140-400) Neutrophils (%) (Auto) 68 % (31-73) Lymphocytes (%) (Auto) 20 % (24-48) L Monocytes (%) (Auto) 10 % (0-9) H Eosinophils (%) (Auto) 2 % (0-3) Basophils (%) (Auto) 1 % (0-3) Neutrophils # (Auto) 4.8 x10^3/uL (1.8-7.7) Lymphocytes # (Auto) 1.4 x10^3/uL (1.0-4.8) Monocytes # (Auto) 0.7 x10^3/uL (0.0-1.1) Eosinophils # (Auto) 0.1 x10^3/uL (0.0-0.7) Basophils # (Auto) 0.1 x10^3/uL (0.0-0.2) D-Dimer (Malinda) 1.23 ug/mlFEU (0.00-0.50) H Sodium Level 144 mmol/L (136-145) Potassium Level 4.4 mmol/L (3.5-5.1) Chloride Level 106 mmol/L (98-107) Carbon Dioxide Level 32 mmol/L (21-32) Anion Gap 6 (6-14) Blood Urea Nitrogen 23 mg/dL (7-20) H Creatinine 1.1 mg/dL (0.6-1.0) H Estimated GFR (Cockcroft-Gault) 48.7 BUN/Creatinine Ratio 21 (6-20) H Glucose Level 100 mg/dL (70-99) H Calcium Level 9.7 mg/dL (8.5-10.1) Phosphorus Level 3.6 mg/dL (2.6-4.7) Magnesium Level 2.2 mg/dL (1.8-2.4) Total Bilirubin 0.4 mg/dL (0.2-1.0) Aspartate Amino Transferase (AST) 17 U/L (15-37) Alanine Aminotransferase (ALT) 31 U/L (14-59) Alkaline Phosphatase 166 U/L (46-116) H Troponin I Quantitative < 0.017 ng/mL (0.000-0.055) ZD-Gsg-F-Type Natriuretic Peptide 957 pg/mL (0-124) H Total Protein 7.0 g/dL (6.4-8.2) Albumin 3.4 g/dL (3.4-5.0) Albumin/Globulin Ratio 0.9 (1.0-1.7) L Lipase 80 U/L (73-393) Thyroid Stimulating Hormone (TSH) 2.342 uIU/mL (0.358-3.74) Laboratory Tests 06/01/21 14:00 Laboratory Tests 06/01/21 14:00 Vital Signs: Vital Signs Date Time Temp Pulse Resp B/P (MAP) Pulse Ox O2 Delivery O2 Flow Rate FiO2 06/01/21 15:16 73 135/63 (87) 94 Room Air 06/01/21 13:15 98.0 18 98.0 EKG: EKG: Paced rhythm, heart rate 77 bpm, indeterminate axis, no STEMI [] Heart Score: C/O Chest Pain: No HEART Score for Chest Pain: HEART Score for Chest Pain Response (Comments) Value History Slighlty/Non-Suspicious 0 ECG Nonspecific Repolarizatio 1 Age > 65 2 Risk Factors >3 Risk Factors or Hx CAD 2 Troponin < Normal Limit 0 Total 5 Risk Factors: Risk Factors: DM, Current or recent (<one month) smoker, HTN, HLP, family history of CAD, obesity. Risk Scores: Score 0 - 3: 2.5% MACE over next 6 weeks - Discharge Home Score 4 - 6: 20.3% MACE over next 6 weeks - Admit for Clinical Observation Score 7 - 10: 72.7% MACE over next 6 weeks - Early Invasive Strategies Radiology/Procedures: Radiology/Procedures: [facility] [address] [place] [address] IMAGING REPORT Signed PATIENT: ANA SIMON ACCOUNT: [id number] : 1950 LOCATION: ER AGE: 71 SEX: F EXAM STATUS: REG ER ORD. PHYSICIAN: DONNA BROCK MD REASON: near syncope, elevated dimer PROCEDURE: CT ANGIOGRAPHY CHEST Study: CT CHEST WITH CONTRAST - PULMONARY ANGIOGRAM History: Near syncope, elevated d-dimer Comparison: CT abdomen and pelvis 12/30/2017 Technique: Helical CT of the chest performed after the administration of 90 mL Omnipaque 350 intravenous contrast and timed for angiographic evaluation of the pulmonary arteries per PE protocol. Coronal and sagittal 3D MIP reformations were obtained. One or more of the following individualized dose reduction techniques were utilized for this examination: 1. Automated exposure control 2. Adjustment of the mA and/or kV according to patient size 3. Use of iterative reconstruction technique. Findings: Pulmonary Arteries: Contrast bolus is adequate. There is no acute pulmonary embolism. Heart/Systemic Vasculature: The heart is mildly enlarged. There are pacemaker/AICD lead. Coronary artery calcifications are noted. The thoracic aorta is normal in caliber. Mediastinum: No lymphadenopathy. Lungs: Lungs are clear. Central airways are clear. No pleural effusion. Neck/Axilla/Body Wall: No axillary or thoracic inlet lymphadenopathy. Thyroid gland is unremarkable. Upper Abdomen: Surgical changes of cholecystectomy. There are bilateral adrenal adenomas measuring up to 2.2 cm on the left. Small hiatal hernia. Bones: The bones are diffusely demineralized. There is degenerative disc disease and bridging osteophytes throughout the thoracic spine. There is a 7 mm sclerotic lesion in the T11 vertebral body, unchanged from 12/30/2017. IMPRESSION: 1. No acute pulmonary embolism. 2. Mild cardiomegaly. Coronary artery calcifications. 3. Bilateral adrenal adenomas. Small hiatal hernia. 4. 7 mm sclerotic lesion in the T7 vertebral body, indeterminate but unchanged from 12/30/2017. Electronically signed by: Donna Londono MD (06/01/2021 3:40 PM) [id number] DICTATED and SIGNED BY: DONNA LONDONO MD DATE: 06/01/21 [id number] [] Course & Med Decision Making: Course & Med Decision Making Pertinent Labs and Imaging studies reviewed. (See chart for details) [] [employer] consulted to come interrogate pacemaker. Episode showing on the monitor and storage bin tender is bradycardic to the 30s. [employer] rep is 3 to 4 hours out. Will admit patient for observation for near syncope while awaiting their analysi s of her pacemakerAICD Dragon Disclaimer: Dragon Disclaimer: This electronic medical record was generated, in whole or in part, using a voice recognition dictation system. Departure Departure Impression: Primary Impression: Near syncope Disposition: ADMITTED INPATIENT Admitting Physician: LIUDMILA Condition: STABLE Referrals: LORRAINE ARTEAGA MD (PCP) DONNA BROCK MD Jun 01, 2021 13:24
--- NOTE | 2021-06-01 13:51 | RAD ---
Single view chest dated 06/01/2021 1:48 PM: COMPARISON: 11/25/2020 Clinical Indication: Near syncope. Findings: Single upright portable exam of the chest was performed. Heart and mediastinal contours are stable. T here is a 3-lead left subclavian pacer/AICD, unchanged. Lungs are clear. No consolidation or pleural effusion. No pneumothorax. Elevation of right hemidiaphragm. IMPRESSION: No acute radiographic abnormality. Stable findings compared to 11/25/2020. Electronically signed by: Phil Delgado MD (06/01/2021 1:49 PM) [id number]
[2021-06-01 14:13] LABS: BASO # 0.1 x10^3/uL (0.0-0.2); BASO % 1 % (0-3); EOS # 0.1 x10^3/uL (0.0-0.7); EOS % 2 % (0-3); HEMOGLOBIN 13.6 g/dL (12.0-15.5); LYMPH # 1.4 x10^3/uL (1.0-4.8); LYMPH % 20 % (24-48); MEAN CORPUSCULAR HEMOGLOBIN 32 pg (25-35); MEAN CORPUSCULAR HGB CONC 33 g/dL (31-37); MEAN CORPUSCULAR VOLUME 96 fL (79-100); MONO # 0.7 x10^3/uL (0.0-1.1); MONO % 10 % (0-9); NEUT # 4.8 x10^3/uL (1.8-7.7); NEUT % 68 % (31-73); PLATELET COUNT 233 x10^3/uL (140-400); RED BLOOD COUNT 4.26 x10^6/uL (3.50-5.40); RED CELL DISTRIBUTION WIDTH 14.9 % (11.5-14.5); WHITE BLOOD COUNT 7.1 x10^3/uL (4.0-11.0)
[2021-06-01 14:24] LABS: CALCIUM 9.7 mg/dL (8.5-10.1); CREATININE 1.1 mg/dL (0.6-1.0); GFR 48.7; POTASSIUM 4.4 mmol/L (3.5-5.1)
[2021-06-01 14:30] LABS: ALBUMIN 3.4 g/dL (3.4-5.0); ALBUMIN/GLOBULIN RATIO 0.9 (1.0-1.7); MAGNESIUM 2.2 mg/dL (1.8-2.4); PHOSPHORUS 3.6 mg/dL (2.6-4.7); TOTAL BILIRUBIN 0.4 mg/dL (0.2-1.0)
--- NOTE | 2021-06-01 14:51 | EKG ---
[facility] [address] [place] [address] Test Date: 2021-06-01 Test Time: 13:13:42 Pat Name: ANA SIMON Department: Room: Gender: F Signal Supervisor: : 1950 Requested By: KARSTEN BROCK Order Number: [id number] Reading MD: Ashwin Rapp MD Measurements Intervals [place] Rate: 77 P: 45 MA: 152 QRS: 228 QRSD: 20 T: 244 QT: 388 QTc: 441 Interpretive Statements SINUS RHYTHM A-V PACING Electronically Signed On 06-02-2021 11:44:43 CDT by Ashwin Rapp MD
[2021-06-01] MEDS ORDERED: IOHEXOL 350 MG/ML 100 ML VIAL. IV ONE (15:00)
[2021-06-01] MEDS ORDERED: CONTRAST GIVEN. MC PRN (15:15)
--- NOTE | 2021-06-01 15:42 | RAD ---
Study: CT CHEST WITH CONTRAST - PULMONARY ANGIOGRAM History: Near syncope, elevated d-dimer Comparison: CT abdomen and pelvis 12/30/2017 Technique: Helical CT of the chest performed after the administration of 90 mL Omnipaque 350 intrave nous contrast and timed for angiographic evaluation of the pulmonary arteries per PE protocol. Austin l and sagittal 3D MIP reformations were obtained. One or more of the following individualized dose reduction techniques were utilized for this examinat ion: 1. Automated exposure control 2. Adjustment of the mA and/or kV according to patient size 3. Use of iterative reconstruction technique. Findings: Pulmonary Arteries: Contrast bolus is adequate. There is no acute pulmonary embolism. Heart/Systemic Vasculature: The heart is mildly enlarged. There are pacemaker/AICD lead. Coronary art mal calcifications are noted. The thoracic aorta is normal in caliber. Mediastinum: No lymphadenopathy. Lungs: Lungs are clear. Central airways are clear. No pleural effusion. Neck/Axilla/Body Wall: No axillary or thoracic inlet lymphadenopathy. Thyroid gland is unremarkable. Upper Abdomen: Surgical changes of cholecystectomy. There are bilateral adrenal adenomas measuring up to 2.2 cm on the left. Small hiatal hernia. Bones: The bones are diffusely demineralized. There is degenerative disc disease and bridging osteoph ytes throughout the thoracic spine. There is a 7 mm sclerotic lesion in the T11 vertebral body, uncha nged from 12/30/2017. IMPRESSION: 1. No acute pulmonary embolism. 2. Mild cardiomegaly. Coronary artery calcifications. 3. Bilateral adrenal adenomas. Small hiatal hernia. 4. 7 mm sclerotic lesion in the T7 vertebral body, indeterminate but unchanged from 12/30/2017. Electronically signed by: Donna Londono MD (06/01/2021 3:40 PM) [id number]
[2021-06-01] MEDS ORDERED: MORPHINE SULFATE 4 MG/ML INJ. IV PRN (17:30)
[2021-06-01] MEDS ORDERED: ONDANSETRON PF 4 MG/2 ML VIAL. IV PRN (17:30)
[2021-06-01] MEDS ORDERED: ACETAMINOPHEN 325 MG TABLET. PO PRN (17:30)
[2021-06-01 18:10] VITALS: BP 143/68
[2021-06-01 19:55] VITALS: BP 149/65
--- NOTE | 2021-06-01 22:35 | HP ---
ADMIT DATE: 06/01/2021 CHIEF COMPLAINT: Near syncope. HISTORY OF PRESENT ILLNESS: The patient is a pleasant 71-year-old female who has an extensive cardiac history including CHF and AFib and a defibrillator and myocardial infarction and cardiac stents. Basically, she was playing the piano today and had a near syncopal episode. She had some associated chest discomfort, it came on suddenly. She also felt flushed. She took some home meds, but that did not seem to help. I discussed the case with ER physician. We have admitted the patient and we are going to consult Cardiology. PAST MEDICAL HISTORY: Defibrillator AFib, CHF, diabetes, hypertension, myocardial infarction, respiratory failure, overweight, obesity, cholecystectomy, tubal ligation, and cardiac stents. ALLERGIES: ELVIRA INHIBITORS, ADHESIVE TAPE, AND CODEINE. FAMILY HISTORY: Coronary artery disease. SOCIAL HISTORY: She does not drink, smoke, or take drugs. She used to work at the [employer]/college. She likes to play the piano. MEDICATIONS: Reviewed, please refer to the MRAD. REVIEW OF SYSTEMS: GENERAL: No history of weight change, weakness or fevers. SKIN: No bruising, hair changes or rashes. EYES: No blurred, double or loss of vision. NOSE AND THROAT: No history of nosebleeds, hoarseness or sore throat. HEART: No history of palpitations, chest pain or shortness of breath on exertion. LUNGS: Denies cough, hemoptysis, wheezing or shortness of breath. GASTROINTESTINAL: Denies changes in appetite, nausea, vomiting, diarrhea or constipation. GENITOURINARY: No history of frequency, urgency, hesitancy or nocturia. NEUROLOGIC: Denies history of numbness, tingling, tremor or weakness. PSYCHIATRIC: No history of panic, anxiety or depression. ENDOCRINE: No history of heat or cold intolerance, polyuria or polydipsia. EXTREMITIES: Denies muscle weakness, joint pain, pain on walking or stiffness. PHYSICAL EXAMINATION: VITALS: Within normal limits and are stable. GENERAL: No apparent distress. Alert and oriented. HEENT: Normal cephalic atraumatic, external auditory canals are patent EYES: Extraocular muscles are intact, pupils are equally round and reactive to light and accommodation MUSCULOSKELETAL Well developed, well nourished, good range of motion ENDOCRINE: No thyromegaly was palpated LYMPHATICS: No cervical chain or axillary nodes were noted HEMATOPOIETIC: No bruising NECK: Supple, no JVD, no thyromegaly was noted. LUNGS: Clear to auscultation in all lung stewart without rhonchi or wheezing. HEART: RRR, S1, S2 present. Peripheral pulses intact, no obvious murmurs were noted. ABDOMEN: Soft, nontender. Positive bowel sounds no organomegaly, normal bowel sounds. EXTREMITIES: Without any cyanosis, clubbing, or edema. Pedal pulses intact, Homans sign is negative. NEUROLOGIC: Normal speech, normal tone. A and O x 3, moves all extremities, no obvious focal deficits. PSYCHIATRIC: Normal affect, normal mood. Stable. SKIN: No ulcerations or rashes, good skin turgor, no jaundice. VASCULAR: Good capillary refill, neurovascular bundle appears to be intact. LABORATORY DATA: Troponin is 0. Hematology is normal. BNP 957. D-dimer 1.23. DIAGNOSTIC DATA: EKG shows a paced rhythm. IMAGING: CT of the chest shows no acute emboli. She does have cardiomegaly. ASSESSMENT AND PLAN: Near syncope, elevated D-dimer, acute on chronic systolic and diastolic heart failure in an elderly female with multiple cardiac issues. The patient has been admitted. We will consult Cardiology. Serial enzymes, serial EKGs, cardiac monitoring, and home meds. DVT prophylaxis. Full code. PROGNOSIS: Guarded. LANA/ÁNGEL/CLARENCE DR: Jolene TID: [id number]
[2021-06-01 23:11] VITALS: BP 148/68
[2021-06-02 03:11] VITALS: BP 157/76
[2021-06-02 07:00] VITALS: BP 136/68
[2021-06-02 07:16] LABS: BASO % 1 % (0-3); EOS # 0.2 x10^3/uL (0.0-0.7); EOS % 3 % (0-3); HEMATOCRIT 39.9 % (36.0-47.0); HEMOGLOBIN 12.9 g/dL (12.0-15.5); LYMPH # 1.7 x10^3/uL (1.0-4.8); LYMPH % 26 % (24-48); MEAN CORPUSCULAR HEMOGLOBIN 32 pg (25-35); MEAN CORPUSCULAR HGB CONC 32 g/dL (31-37); MEAN CORPUSCULAR VOLUME 98 fL (79-100); MONO # 0.7 x10^3/uL (0.0-1.1); MONO % 11 % (0-9); NEUT # 3.9 x10^3/uL (1.8-7.7); NEUT % 59 % (31-73); PLATELET COUNT 212 x10^3/uL (140-400); RED BLOOD COUNT 4.08 x10^6/uL (3.50-5.40); RED CELL DISTRIBUTION WIDTH 15.2 % (11.5-14.5); WHITE BLOOD COUNT 6.5 x10^3/uL (4.0-11.0)
[2021-06-02 07:23] LABS: ALBUMIN 3.2 g/dL (3.4-5.0); ALBUMIN/GLOBULIN RATIO 0.9 (1.0-1.7); CALCIUM 9.6 mg/dL (8.5-10.1); CREATININE 1.2 mg/dL (0.6-1.0); POTASSIUM 4.8 mmol/L (3.5-5.1); TOTAL BILIRUBIN 0.4 mg/dL (0.2-1.0); TOTAL PROTEIN 6.6 g/dL (6.4-8.2)
--- NOTE | 2021-06-02 10:46 | PDOC ---
[employer] PROGRESS NOTE Date of Service DOS: DATE: 06/02/21 TIME: 10:37 Chief Complaint Chief Complaint CC: Near Syncopal event SOA Chest pain Flushed CHF Atrial fibrillation UT HTN Diabetes Obesity Defibrillator Cardiac Stents Cholecystectomy Tubal Ligation History of Present Illness History of Present Illness 06/02 Pt seen and examined. EFREM RN. Pt feels fine now and wants to go home Pt denies SOA and denies any chest pain or discomfort. Pt says she thinks she didnt really have true chest pain yesterday, but was just scared and more so anxiety from SOA. Awaiting Cardiology to meet with her today, but pt is able to D/C today if cardiology agrees. HISTORY OF PRESENT ILLNESS: The patient is a pleasant 71-year-old female who has an extensive cardiac history including CHF and AFib and a defibrillator and myocardial infarction and cardiac stents. Basically, she was playing the piano today and had a near syncopal episode. She had some associated chest discomfort, it came on suddenly. She also felt flushed. She took some home meds, but that did not seem to help. I discussed the case with ER physician. We have admitted the patient and we are going to consult Cardiology. Vitals/I&O Vitals/I&O: Vital Signs Date Time Temp Pulse Resp B/P (MAP) Pulse Ox O2 Delivery O2 Flow Rate FiO2 06/02/21 07:00 97.9 80 18 136/68 (90) 95 Room Air 97.9 I & O 06/01/21 06/01/21 06/02/21 15:00 23:00 07:00 Intake Total 100 ml 0 ml Output Total 0 ml 2 ml Balance 100 ml -2 ml Physical Exam General: Alert, Oriented X3, Cooperative, No acute distress Heart: Normal S1, Normal S2, No murmurs Lungs: Clear Abdomen: Normal bowel sounds, Soft, No tenderness Extremities: No clubbing, No cyanosis, No edema Skin: No rashes, No breakdown, No significant lesion Labs Labs: Laboratory Tests Test 06/01/21 14:00 06/01/21 20:29 06/01/21 21:07 06/01/21 23:35 White Blood Count 7.1 x10^3/uL (4.0-11.0) Red Blood Count 4.26 x10^6/uL (3.50-5.40) Hemoglobin 13.6 g/dL (12.0-15.5) Hematocrit 41.0 % (36.0-47.0) Mean Corpuscular Volume 96 fL (79-100) Mean Corpuscular Hemoglobin 32 pg (25-35) Mean Corpuscular Hemoglobin Concent 33 g/dL (31-37) Red Cell Distribution Width 14.9 % (11.5-14.5) Platelet Count 233 x10^3/uL (140-400) Neutrophils (%) (Auto) 68 % (31-73) Lymphocytes (%) (Auto) 20 % (24-48) Monocytes (%) (Auto) 10 % (0-9) Eosinophils (%) (Auto) 2 % (0-3) Basophils (%) (Auto) 1 % (0-3) Neutrophils # (Auto) 4.8 x10^3/uL (1.8-7.7) Lymphocytes # (Auto) 1.4 x10^3/uL (1.0-4.8) Monocytes # (Auto) 0.7 x10^3/uL (0.0-1.1) Eosinophils # (Auto) 0.1 x10^3/uL (0.0-0.7) Basophils # (Auto) 0.1 x10^3/uL (0.0-0.2) D-Dimer (Malinda) 1.23 ug/mlFEU (0.00-0.50) Sodium Level 144 mmol/L (136-145) Potassium Level 4.4 mmol/L (3.5-5.1) Chloride Level 106 mmol/L (98-107) Carbon Dioxide Level 32 mmol/L (21-32) Anion Gap 6 (6-14) Blood Urea Nitrogen 23 mg/dL (7-20) Creatinine 1.1 mg/dL (0.6-1.0) Estimated GFR (Cockcroft-Gault) 48.7 BUN/Creatinine Ratio 21 (6-20) Glucose Level 100 mg/dL (70-99) Calcium Level 9.7 mg/dL (8.5-10.1) Phosphorus Level 3.6 mg/dL (2.6-4.7) Magnesium Level 2.2 mg/dL (1.8-2.4) Total Bilirubin 0.4 mg/dL (0.2-1.0) Aspartate Amino Transf (AST/SGOT) 17 U/L (15-37) Alanine Aminotransferase (ALT/SGPT) 31 U/L (14-59) Alkaline Phosphatase 166 U/L (46-116) Troponin I Quantitative < 0.017 ng/mL (0.000-0.055) < 0.017 ng/mL (0.000-0.055) < 0.017 ng/mL (0.000-0.055) OO-Pos-S-Type Natriuretic Peptide 957 pg/mL (0-124) Total Protein 7.0 g/dL (6.4-8.2) Albumin 3.4 g/dL (3.4-5.0) Albumin/Globulin Ratio 0.9 (1.0-1.7) Lipase 80 U/L (73-393) Thyroid Stimulating Hormone (TSH) 2.342 uIU/mL (0.358-3.74) Glucose (Fingerstick) 114 mg/dL (70-99) Test 06/02/21 06:10 White Blood Count 6.5 x10^3/uL (4.0-11.0) Red Blood Count 4.08 x10^6/uL (3.50-5.40) Hemoglobin 12.9 g/dL (12.0-15.5) Hematocrit 39.9 % (36.0-47.0) Mean Corpuscular Volume 98 fL (79-100) Mean Corpuscular Hemoglobin 32 pg (25-35) Mean Corpuscular Hemoglobin Concent 32 g/dL (31-37) Red Cell Distribution Width 15.2 % (11.5-14.5) Platelet Count 212 x10^3/uL (140-400) Neutrophils (%) (Auto) 59 % (31-73) Lymphocytes (%) (Auto) 26 % (24-48) Monocytes (%) (Auto) 11 % (0-9) Eosinophils (%) (Auto) 3 % (0-3) Basophils (%) (Auto) 1 % (0-3) Neutrophils # (Auto) 3.9 x10^3/uL (1.8-7.7) Lymphocytes # (Auto) 1.7 x10^3/uL (1.0-4.8) Monocytes # (Auto) 0.7 x10^3/uL (0.0-1.1) Eosinophils # (Auto) 0.2 x10^3/uL (0.0-0.7) Basophils # (Auto) 0.0 x10^3/uL (0.0-0.2) Sodium Level 145 mmol/L (136-145) Potassium Level 4.8 mmol/L (3.5-5.1) Chloride Level 107 mmol/L (98-107) Carbon Dioxide Level 34 mmol/L (21-32) Anion Gap 4 (6-14) Blood Urea Nitrogen 20 mg/dL (7-20) Creatinine 1.2 mg/dL (0.6-1.0) Estimated GFR (Cockcroft-Gault) 44.0 BUN/Creatinine Ratio 17 (6-20) Glucose Level 84 mg/dL (70-99) Calcium Level 9.6 mg/dL (8.5-10.1) Total Bilirubin 0.4 mg/dL (0.2-1.0) Aspartate Amino Transf (AST/SGOT) 20 U/L (15-37) Alanine Aminotransferase (ALT/SGPT) 32 U/L (14-59) Alkaline Phosphatase 146 U/L (46-116) Total Protein 6.6 g/dL (6.4-8.2) Albumin 3.2 g/dL (3.4-5.0) Albumin/Globulin Ratio 0.9 (1.0-1.7) Review of Systems Review of Systems: denies chest pain. Denies abdominal pain. Denies calf pain b/l. Assessment and Plan Assessmemt and Plan Problems Medical Problems: (1) Near syncope Status: Acute Assessment: CC: Near Syncopal event SOA Chest pain Flushed CHF Atrial fibrillation UT HTN Diabetes Obesity Defibrillator Cardiac Stents Cholecystectomy Tubal Ligation Plan: Potential D/C today if Cardiology agrees Awaiting Cardiology Input Cardiac Diet PT OT DVT prophylaxis Full Code Comment Review of Relevant I have reviewed the following items pedro luis (where applicable) has been applied. Medications: Current Medications Medications (Trade) Dose Ordered Sig/Adrianna Route PRN Reason Start Time Stop Time Status Last Admin Dose Admin Iohexol (Omnipaque 350 Mg/ml) 90 ml 1X ONCE IV 06/01/21 15:00 06/01/21 15:01 DC 06/01/21 15:10 Justifications for Admission Other Justification Physical debility, intractable pain JAKE BARGER III DO Jun 02, 2021 10:46
[2021-06-02 11:04] VITALS: BP 115/53
--- NOTE | 2021-06-02 11:55 | PDOC2 ---
CARDIOLOGY CONSULT NOTE DATE OF SERVICE: DATE: 06/02/21 TIME: 11:50 CHIEF COMPLAINT: Near syncope HPI: Annie is a pleasant 71 old woman who was in her usual state of health presents to the hospital in the setting of having some visual changes. She was playing piano and noticed that the words were blurry and try to turn her head around and felt some dizziness. She did not have any associated chest pain, dyspnea, ortho pnea or PND. She has not had any prior issues. She lives at home by herself and is able to care for herself without any significant limitations. She is followed by Dr. Kendrick. She had recent extensive testing in the last 2 years for her known ischemic cardiomyopathy PMHX: Coronary artery disease status post prior history of ischemic cardiomyopathy status post BiV ICD, Biotronik device Obesity Hypertension Dyslipidemia Sick sinus syndrome status post pacemaker which was upgraded as noted above SOCHX: Denies any alcohol, tobacco or illicit drug use FAMHX: Noncontributory CURRENT MEDS: Home medications reviewed including labetalol, diltiazem, Entresto. She is on aspirin and Plavix ALLERGIES: Allergies Coded Allergies Type Severity Reaction Last Updated Verified ELVIRA Inhibitors Allergy Intermediate 10/16/17 Yes adhesive tape Allergy Intermediate 10/16/17 Yes codeine Allergy Intermediate 11/25/20 Yes ROS: Negative for 10 out of 14 systems reviewed unless otherwise mentioned above in PHYSICAL EXAM: Vital Signs/I&O: Vital Signs Date Time Temp Pulse Resp B/P (MAP) Pulse Ox O2 Delivery O2 Flow Rate FiO2 06/02/21 11:04 98.1 80 20 115/53 (73) 96 Room Air 98.1 I & O 06/01/21 06/01/21 06/02/21 15:00 23:00 07:00 Intake Total 100 ml 0 ml Output Total 0 ml 2 ml Balance 100 ml -2 ml Physical Exam: GEN.: No apparent distress. Alert and oriented. HEENT: Head is normocephalic, atraumatic NECK: Supple. LUNGS: Clear to auscultation. HEART: RRR, S1, S2 present. Peripheral pulses intact ABDOMEN: Soft, nontender. Positive bowel sounds. EXTREMITIES: Without any cyanosis. NEUROLOGIC: Normal speech, normal tone PSYCHIATRIC: Normal affect, normal mood. SKIN: No ulcerations DIAGNOSTIC TESTING: EKG is unremarkable shows paced rhythm Biomarkers are negative CT of the chest is negative Prior echo and stress test within the last 2 years reviewed and she has mild LV dysfunction with ejection fraction of 45%. No ischemia on stress testing Lab Laboratory Tests Test 06/01/21 14:00 06/01/21 21:07 06/02/21 06:10 06/02/21 11:21 White Blood Count 7.1 x10^3/uL (4.0-11.0) 6.5 x10^3/uL (4.0-11.0) Red Blood Count 4.26 x10^6/uL (3.50-5.40) 4.08 x10^6/uL (3.50-5.40) Hemoglobin 13.6 g/dL (12.0-15.5) 12.9 g/dL (12.0-15.5) Hematocrit 41.0 % (36.0-47.0) 39.9 % (36.0-47.0) Mean Corpuscular Volume 96 fL (79-100) 98 fL (79-100) Mean Corpuscular Hemoglobin 32 pg (25-35) 32 pg (25-35) Mean Corpuscular Hemoglobin Concent 33 g/dL (31-37) 32 g/dL (31-37) Red Cell Distribution Width 14.9 % (11.5-14.5) H 15.2 % (11.5-14.5) H Platelet Count 233 x10^3/uL (140-400) 212 x10^3/uL (140-400) Neutrophils (%) (Auto) 68 % (31-73) 59 % (31-73) Lymphocytes (%) (Auto) 20 % (24-48) L 26 % (24-48) Monocytes (%) (Auto) 10 % (0-9) H 11 % (0-9) H Eosinophils (%) (Auto) 2 % (0-3) 3 % (0-3) Basophils (%) (Auto) 1 % (0-3) 1 % (0-3) Neutrophils # (Auto) 4.8 x10^3/uL (1.8-7.7) 3.9 x10^3/uL (1.8-7.7) Lymphocytes # (Auto) 1.4 x10^3/uL (1.0-4.8) 1.7 x10^3/uL (1.0-4.8) Monocytes # (Auto) 0.7 x10^3/uL (0.0-1.1) 0.7 x10^3/uL (0.0-1.1) Eosinophils # (Auto) 0.1 x10^3/uL (0.0-0.7) 0.2 x10^3/uL (0.0-0.7) Basophils # (Auto) 0.1 x10^3/uL (0.0-0.2) 0.0 x10^3/uL (0.0-0.2) D-Dimer (Malinda) 1.23 ug/mlFEU (0.00-0.50) H Sodium Level 144 mmol/L (136-145) 145 mmol/L (136-145) Potassium Level 4.4 mmol/L (3.5-5.1) 4.8 mmol/L (3.5-5.1) Chloride Level 106 mmol/L (98-107) 107 mmol/L (98-107) Carbon Dioxide Level 32 mmol/L (21-32) 34 mmol/L (21-32) H Anion Gap 6 (6-14) 4 (6-14) L Blood Urea Nitrogen 23 mg/dL (7-20) H 20 mg/dL (7-20) Creatinine 1.1 mg/dL (0.6-1.0) H 1.2 mg/dL (0.6-1.0) H Estimated GFR (Cockcroft-Gault) 48.7 44.0 BUN/Creatinine Ratio 21 (6-20) H 17 (6-20) Glucose Level 100 mg/dL (70-99) H 84 mg/dL (70-99) Calcium Level 9.7 mg/dL (8.5-10.1) 9.6 mg/dL (8.5-10.1) Phosphorus Level 3.6 mg/dL (2.6-4.7) Total Bilirubin 0.4 mg/dL (0.2-1.0) 0.4 mg/dL (0.2-1.0) Aspartate Amino Transf (AST/SGOT) 17 U/L (15-37) 20 U/L (15-37) Alkaline Phosphatase 166 U/L (46-116) H 146 U/L (46-116) H Total Protein 7.0 g/dL (6.4-8.2) 6.6 g/dL (6.4-8.2) Albumin 3.4 g/dL (3.4-5.0) 3.2 g/dL (3.4-5.0) L Albumin/Globulin Ratio 0.9 (1.0-1.7) L 0.9 (1.0-1.7) L Lipase 80 U/L (73-393) Thyroid Stimulating Hormone (TSH) 2.342 uIU/mL (0.358-3.74) Glucose (Fingerstick) 114 mg/dL (70-99) H 93 mg/dL (70-99) Laboratory Tests 06/02/21 06:10 ASSESSMENT: 1. Dizziness, no specific cardiovascular pathology noted thus far 2. History of coronary artery disease with ischemic cardiomyopathy 3. Hypertension 4. Dyslipidemia 5. Morbid obesity PLAN: 1. At this present time no further cardiovascular testing is necessary. Her blood pressure, vital signs are stable. She overall feels well. She does not have any chest pain symptoms. EKG is also negative for any ischemia. We will obtain a recording of her device and if this is unremarkable she can be discharged home in stable condition. She will follow-up in the office. EILEEN RESENDEZ MD Jun 02, 2021 11:55
--- NOTE | 2021-06-02 14:41 | DS ---
DATE OF DISCHARGE: 06/02/2021 ADMITTING DIAGNOSIS: Near syncope. DISCHARGE DIAGNOSES: Resolving near syncope, history of defibrillator, atrial fibrillation, congestive heart failure, diabetes, hypertension, myocardial infarction, respiratory failure, overweight, obesity, cholecystectomy, tubal ligation and cardiac stents. CONSULTS: Cardiology. PROCEDURES: None. HOSPITAL COURSE: The patient is a pleasant elderly female who was playing the piano, had a near syncopal episode. She was admitted. We consulted Cardiology. We did serial enzymes, serial EKGs, did cardiac monitoring. We interrogated her defibrillator. Today, I saw her and examined her. She is at her baseline and wants to go home. I discussed the case with the nurse. Cardiology is okay with her going home if her interrogation of her AICD is fine. We will go ahead and put the discharge orders in. DISPOSITION: Home. ACTIVITY: As tolerated. DIET: Low sodium. DISCHARGE MEDICATIONS: Please see the MRAD. Vitamin C, aspirin 81 a day, Plavix 75 a day, B12, Cardizem-CD 180 a day, Imdur 60 a day, Krill oil, labetalol 200 b.i.d., Icy Hot and Entresto 49/51 one b.i.d. Total time 34 minutes. LANA/JOSHUA DR: Jolene TID: [id number]
== END 2021-06-02 13:45 | disposition home or self-care (01) ==
LOC: ER 13:01 → 2 NORTH 15:50
PROVIDERS: ADMIT Internal Medicine; ATTEND Internal Medicine
DX: R55 Syncope and collapse (principal); J96.90 Respiratory failure, unspecified, unspecified whether with hypoxia or hypercapnia; I48.91 Unspecified atrial fibrillation; I11.0 Hypertensive heart disease with heart failure; I50.43 Acute on chronic combined systolic (congestive) and diastolic (congestive) heart failure; R77.8 Other specified abnormalities of plasma proteins; E11.9 Type 2 diabetes mellitus without complications; E66.01 Morbid (severe) obesity due to excess calories; E78.5 Hyperlipidemia, unspecified; F06.4 Anxiety disorder due to known physiological condition; I25.10 Atherosclerotic heart disease of native coronary artery without angina pectoris; I25.2 Old myocardial infarction; I25.5 Ischemic cardiomyopathy; I49.5 Sick sinus syndrome; K44.9 Diaphragmatic hernia without obstruction or gangrene; D35.01 Benign neoplasm of right adrenal gland; E66.3 Overweight; D35.02 Benign neoplasm of left adrenal gland; Z79.02 Long term (current) use of antithrombotics/antiplatelets; Z79.82 Long term (current) use of aspirin; Z95.5 Presence of coronary angioplasty implant and graft; Z95.810 Presence of automatic (implantable) cardiac defibrillator; Z98.51 Tubal ligation status; Z90.49 Acquired absence of other specified parts of digestive tract; Z95.1 Presence of aortocoronary bypass graft; Z68.42 Body mass index [BMI] 45.0-49.9, adult
CPT/HCPCS: 36415; 71045; 71275; 80053; 82962; 83690; 83735; 83880; 84100; 84443; 84484; 85025; 85379; 93005; 99285; G0378; Q9967; G0379

== ENCOUNTER → 2021-06-26 | Day surgery (SDC) | payer MEDICARE ==
[~2021-06-26] VITALS: Ht 162.6 cm; Wt 117.0 kg
[~2021-06-26] MED LIST changes: +IV RINGERS,LACTATED 1000ML 1,000 ML IV ONE; +LIDOCAINE 2% PF 5 ML VIAL. ONE; +PROPOFOL 10 MG/ML (20ML) VIAL. IV ONE
[2021-06-26 08:45] VITALS: BP 152/72
[2021-06-26 09:50] VITALS: BP 153/80
== END | disposition home or self-care (01) ==
LOC: ENDOS 07:46
PROVIDERS: ATTEND Internal Medicine Gastroenterology
DX: Z12.11 Encounter for screening for malignant neoplasm of colon (principal); K64.0 First degree hemorrhoids; K57.30 Diverticulosis of large intestine without perforation or abscess without bleeding; I11.0 Hypertensive heart disease with heart failure; I50.9 Heart failure, unspecified; I48.91 Unspecified atrial fibrillation; I25.10 Atherosclerotic heart disease of native coronary artery without angina pectoris; J44.9 Chronic obstructive pulmonary disease, unspecified; E78.00 Pure hypercholesterolemia, unspecified; E11.9 Type 2 diabetes mellitus without complications; M19.90 Unspecified osteoarthritis, unspecified site; E66.3 Overweight; K21.9 Gastro-esophageal reflux disease without esophagitis; F41.9 Anxiety disorder, unspecified; Z85.038 Personal history of other malignant neoplasm of large intestine; Z87.440 Personal history of urinary (tract) infections; Z79.899 Other long term (current) drug therapy; Z79.82 Long term (current) use of aspirin; Z98.890 Other specified postprocedural states; Z98.51 Tubal ligation status; Z88.5 Allergy status to narcotic agent; Z88.8 Allergy status to other drugs, medicaments and biological substances; Z82.49 Family history of ischemic heart disease and other diseases of the circulatory system; Z83.3 Family history of diabetes mellitus
CPT/HCPCS: G0105; J2704; 45378